=== PATIENT | female | born 1930 | race Caucasian/White ===

== ENCOUNTER 2016-09-09 11:21 | Inpatient (IN) | payer MEDICARE ==
[2016-09-09] MEDS ORDERED: methylPREDNISolone SOD SUCC* 125 MG 2 ML VIAL IV ONE (11:35)
--- NOTE | 2016-09-09 12:14 | RAD ---
INDICATION: Shortness of breath. Cardiac valvular disease. Chronic obstructive pulmonary disease. On home oxygen. COMPARISON: None. TECHNIQUE: Dual energy PA and routine lateral views of the chest were obtained. REPORT: Elevated lung volumes with both minimal prominence and rarefaction of the interstitial markings. No pulmonary consolidation, focal pulmonary lesion, pleural effusion, pneumothorax. Cardiomegaly. Prominent central pulmonary vasculature with peripheral attenuation. Spinal fixation rods with RIGHT convex thoracic lumbar scoliosis with reversal extending cephalad. IMPRESSION: Stigmata of advanced chronic obstructive pulmonary disease and emphysema. Probable pulmonary arterial hypertension. No acute cardiopulmonary process evident.
[2016-09-09 12:22] LABS: Hematocrit 41 % (35-47); Hemoglobin 13.6 g/dl (12.0-16.0); Mean Corpuscular HGB Conc 33 g/dl (31-36); Mean Corpuscular Hemoglobin 32 pg (27-31); Mean Corpuscular Volume 96 fL (80-97); Mean Platelet Volume 9 um3 (7.4-10.4); Red Blood Count 4.25 10^6/ul (4.0-5.4); Red Cell Distribution Width 13 % (10.5-15); White Blood Count 7.1 10^3/ul (3.5-10.8)
[2016-09-09 12:39] LABS: Troponin I 0.01 ng/mL (<0.04)
[2016-09-09] MEDS ORDERED: Albuterol/Ipratropium NEB.SOL* Albuterol 2.5 MG/Ipratropium 0.5 MG 3 ML ONE (12:57)
[2016-09-09] MEDS: Albuterol/Ipratropium NEB.SOL* Albuterol 2.5 MG/Ipratropium 0.5 MG 3 ML INH SCH ×2 (13:00→13:01)
[2016-09-09 13:39] LABS: Albumin 3.5 g/dL (3.2-5.2); BUN/Creatinine Ratio 16.7 (8-20); C Reactive Protein 23.55 mg/L (< 5.00); Calcium 9.3 mg/dL (8.6-10.3); EGFR Non-African American 59.1 (>60); Globulin 3.4 g/dL (2-4); Potassium 4.1 mmol/L (3.5-5.0); Total Protein 6.9 g/dL (6.4-8.9)
[2016-09-09 14:16] LABS: FIO2 2
[2016-09-09 14:39] LABS: PCO2 Arterial 38 mmHg (35-45)
[2016-09-09 15:29] LABS: Urine Bacteria Absent (Absent); Urine Bilirubin Negative (Negative); Urine Glucose Negative (Negative); Urine Nitrite Negative (Negative)
[2016-09-09] MEDS ORDERED: Iodixanol* (CONTRAST) 320 MG/ML 100 ML SDV IV ONE (17:24)
--- NOTE | 2016-09-09 18:24 | RAD ---
INDICATION: Shortness of breath. Elevated d-dimer. Cold symptoms for a couple of days without improvement. COMPARISON: September 09, 2016 chest radiograph. TECHNIQUE: Multidetector CT images were obtained from the lung apices to the upper abdomen with 89 mL Visipaque 320 IV contrast. Pulmonary angiogram protocol. Multiplanar reformation including with maximum intensity projection. REPORT: LEFT greater than RIGHT linear atelectasis at the lung bases. Negative for pleural effusion or pneumothorax. Negative for lymphadenopathy. Cardiomegaly. Negative for pericardial effusion. Tortuous thoracic aorta with mild atherosclerotic plaque. Motion artifact mildly limits sensitivity and specificity of the CT pulmonary angiogram. There is a filling defect involving the distal segmental and subsegmental pulmonary arteries at the posterior basal segment of the LEFT lower lobe. No additional pulmonary artery filling defects visualized. Unremarkable Limited images through the upper abdomen. Dextroscoliosis of the lower thoracic and proximal lumbar spine. Spinal fixation rods. Negative for suspicious focal osseous lesions. IMPRESSION: 1. Probable distal segmental and subsegmental pulmonary embolism at the posterior basal segment of the LEFT lower lobe. 2. LEFT greater than RIGHT basilar atelectasis. No compelling evidence for pneumonia. Results discussed with Dr. Guo 09/09/2016 6:21 PM EDT
[2016-09-09] MEDS ORDERED: Spiriva Inhaler DEVICE* 1 EACH DEVICE INH ONE (20:00)
--- NOTE | 2016-09-09 20:15 | ED ---
Ivone Vidal Matthew, scribed for Ruperto Guo MD on 09/09/16 at 1143 . Shortness of Breath - HPI Summary HPI Summary: An 86 y/o female presents to the ED with SOB since today. Associated symptoms include non-productive cough for the past 2 days that is worse today. The patient has a Hx of dementia and lives with her daughter. The daughter states that the patient has not had a fever, and she's unsure if the patient is having chest pain; however, she has not complained of chest pain. PMHx includes COPD. The patient uses 2-3L of home oxygen at night and Spiriva during the day. - History of Current Complaint Chief Complaint: EDShortnessOfBreath Time Seen by Provider: 09/09/16 11:32 Hx Obtained From: Family/Motor Runner - Laure Hx From Patient Unobtainable Due To: Dementia Onset/Duration: Gradual Onset, Lasting Hours, Still Present Timing: Constant Current Severity: Moderate Dyspnea At: Rest Associated Signs & Symptoms: Cough (Nonproductive) - Allergy/Home Medications Allergies/Adverse Reactions: Allergies Allergy/AdvReac Type Severity Reaction Status Date / Time No Known Allergies Allergy Verified 09/09/16 11:22 Home Medications: Home Medications Aspirin EC Low Dose* [Ecotrin EC Low Dose 81 MG*] 81 mg PO DAILY 09/09/16 [ History Confirmed 09/09/16] Donepezil TAB* [Aricept 5 MG TAB*] 10 mg PO QPM 09/09/16 [History Confirmed ] Metoprolol Succinate XL TAB* [Toprol XL TAB*] 25 mg PO DAILY 09/09/16 [History Confirmed 09/09/16] Pravastatin Sodium [Pravachol] 80 mg PO DAILY 09/09/16 [History Confirmed ] Tiotropium CAP.INH* [Spiriva CAP.INH*] 1 cap.inh INH DAILY 09/09/16 [History Confirmed 09/09/16] PMH/Surg Hx/FS Hx/Imm Hx Cardiovascular History: Reports: Hx Deep Vein Thrombosis, Hx Hypercholesterolemia, Hx Valvular Heart Disease Denies: Hx Hypertension Respiratory History: Reports: Hx Chronic Obstructive Pulmonary Disease (COPD) Infectious Disease History: No Infectious Disease History: Denies: Traveled Outside the [place] in Last 30 Days - Family History Known Family History: Positive: Diabetes Family History: FHx of AAA - Social History Lives: With Family Alcohol Use: None Hx Substance Use: No Substance Use Type: Reports: None Hx Tobacco Use: Yes Smoking Status (MU): Former Smoker Review of Systems Constitutional: Negative Negative: Fever Eyes: Negative ENT: Negative Cardiovascular: Negative Positive: Shortness Of Breath, Cough - non-productive Gastrointestinal: Negative Genitourinary: Negative Musculoskeletal: Negative Skin: Negative Neurological: Negative Psychological: Normal All Other Systems Reviewed And Are Negative: Yes Physical Exam - Summary Physical Exam Summary: VITAL SIGNS: Reviewed. GENERAL: Patient is a well developed and nourished female with some distress secondary to the shortness of breath. However, she is able to speak in full sentences. HEAD AND FACE: Normocephalic and atraumatic. EYES: PERRLA, EOMI x 2, No injected conjunctiva. EARS: Hearing grossly intact. Ear canals and tympanic membranes WNL MOUTH: Dry oral mucosa. NECK: Supple, trachea is midline, no adenopathy, no JVD, no carotid bruit. CHEST: Symmetric, No intercostal or abdominal retraction, LUNGS: Diffuse bilateral wheezing and decreased breath sounds.No crackles. CVS: RRR,, S1 and S2 present, no murmurs or gallops appreciated. ABDOMEN: Soft, non-tender. No signs of distention. Positive BS. No rebound, no guarding, and no masses palpated. EXTREMITIES: FROM in all major joints, no edema, no cyanosis or clubbing. NEURO: Alert and oriented x 3. No acute neurological deficits. Speech is normal and follows commands. SKIN: Dry and warm Triage Information Reviewed: Yes Vital Signs On Initial Exam: Initial Vitals Temp Pulse Resp BP Pulse Ox 98.2 F 91 28 132/73 99 09/09/16 11:22 09/09/16 11:22 09/09/16 11:22 09/09/16 11:22 09/09/16 11:22 Vital Signs Reviewed: Yes Diagnostics - Vital Signs Vital Signs Temp Pulse Resp BP Pulse Ox 09/09/16 11:22 98.2 F 91 28 132/73 99 - Laboratory Result Diagrams: 09/09/16 12:10 09/09/16 12:10 Lab Statement: Any lab studies that have been ordered have been reviewed, and results considered in the medical decision making process. - Radiology CXR Xray Interpretation: No Acute Changes - IMPRESSION: Stigmata of advanced chronic obstructive pulmonary disease and emphysema. Probable pulmonary arterial hypertension. No acute cardiopulmonary process evident. Radiology Interpretation Completed By: Radiologist - CT Chest CTA CT Interpretation: Positive (See Comments) - IMPRESSION: 1. Probable distal segmental and subsegmental pulmonary embolism at the posterior basal segment of the LEFT lower lobe. 2. LEFT greater than RIGHT basilar atelectasis. No compelling evidence for pneumonia. CT Interpretation Completed By: Radiologist - EKG 11:35 Cardiac Rate: NL - 78 bpm EKG Rhythm: Sinus Rhythm EKG Interpretation: No ST elevation Course/Dx - Course Assessment/Plan: An 86 y/o female presents to the ED with SOB since today. Associated symptoms include non-productive cough for the past 2 days that is worse today. The patient has a Hx of dementia and lives with her daughter. The daughter states that the patient has not had a fever, and she's unsure if the patient is having chest pain; however, she has not complained of chest pain. PMHx includes COPD. The patient uses 2-3L of home oxygen at night and Spiriva during the day. D-Dimer of 1050, CRP of 23.55, BNP of 175, Urinalysis is contaminated. Influenza A&B is negative. ABG pH of 7.44, pCO2 of 38, pO2 of 64. CXR shows COPD w/ no other acute cardiopulmonary disease. In the ED course, the patient was given DuoNebs, because she was wheezing, SOB and has a Hx of COPD. Symptoms have no significantly improved, therefore I decided to do CHEST CTA to r/o PE. Chest CTA shows IMPRESSION: 1. Probable distal segmental and subsegmental pulmonary embolism at the posterior basal segment of the LEFT lower lobe. 2. LEFT greater than RIGHT basilar atelectasis. No compelling evidence for pneumonia. At this point, I discussed my findings with Dr. Granados and the patient has COPD exacerbation and PE. Dr. Granados requested that the patient be given xarelto and hell be admitting the patient into his services. - Diagnoses Differential Diagnosis/HQI/PQRI: Positive: Asthma, Bronchitis, CHF, COPD Exacerbation, Pneumonia Provider Diagnoses: Pulmonary embolism, COPD exacerbation - Physician Notifications Discussed Care of Patient With: Dr. Granados (Hospitalist) at 19:15 -- Notified of patinet's history and will admit the patient. Discharge - Discharge Plan Condition: Stable Disposition: ADMITTED TO [facility] Referrals: Non Staff,Doctor [Primary Care Provider] - The documentation as recorded by the Ivone link Matthew accurately reflects the service I personally performed and the decisions made by me, Ruperto Guo MD.
--- NOTE | 2016-09-10 02:34 | HP ---
HOSPITAL MEDICINE HISTORY AND PHYSICAL: DATE OF ADMISSION: 09/09/16 PRIMARY CARE PHYSICIAN: Dr. Rodriguez in [place]. ATTENDING PHYSICIAN: Dr. Dennis Granados *(dictation provided by Jo-Ann Martinez NP) CHIEF COMPLAINT: Shortness of breath. HISTORY OF PRESENT ILLNESS: Ms. Torres is an 86-year-old female with significant history of dementia, who is unable to provide much in the way of information today and therefore, her daughter provides all relevant information about the HPI. The patient's daughter states that Ms. Torres has dementia and was no longer able to care for herself independently and therefore has recently moved in with her into her home in [place]. She noted that about 2 weeks ago, the patient was sleeping and "laying around" more than usual. The suspicion is that perhaps Ms. Torres had a urinary tract infection. She has had these frequently in the past. Today, the patient was getting up to go to the bathroom and she was noted to be significantly short of breath with walking just a short distance. This was very unusual for the patient. There is no report of fever, chills, significant cough, or chest pain. 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 However, her primary care physician had taken her off Coumadin secondary to a fall back in January of last year. In the emergency room, Ms. Torres had a D-dimer, which was greater than 1050. She then went on for a CTA of the chest and thorax, which did confirm a pulmonary embolism. PAST MEDICAL HISTORY: 1. Dementia. 2. COPD. 3. History of DVT, off Coumadin. 4. Hypertension. No further medical history available from the daughter. MEDICATIONS: 1. Spiriva 18 mcg inhaled daily. 2. Donepezil 10 mg p.o. daily. 3. Aspirin 81 mg p.o. daily. 4. Pravastatin 80 mg p.o. daily. 5. Metoprolol ER 25 mg p.o. daily. FAMILY HISTORY: The patient's daughter reports that the patient's mother had diabetes and the patient's father related to an aneurysm. SOCIAL HISTORY: The patient quit smoking over 50 years ago. There is no report of alcohol or drug use. She lives with the patient's daughter whose name is Breanna and she is the healthcare proxy along with the patient's brother. REVIEW OF SYSTEMS: A 14-point review of systems was completed with Ms. Torres to the best of her ability and none of those were positive. PHYSICAL EXAMINATION GENERAL: Ms. Torres is sitting in the bed. She is in no acute distress while at rest. VITAL SIGNS: Temperature 98.2, heart rate 101, respiratory rate 26, O2 saturation 95% on 3 L nasal cannula, and blood pressure 118/67. LUNGS: Clear to auscultation bilaterally with no accessory muscle use and good aeration. HEART: S1, S2. No murmur, rub, or gallop, and regular. ABDOMEN: Soft and nontender with bowel sounds positive x4. EXTREMITIES: No cyanosis or edema. NEURO: She is alert, she is oriented x3 though she is clearly confused and repeats questions several times. She moves all extremities equally. There is no facial asymmetry or focal weakness. Extraocular movements are intact. SKIN: Intact. DIAGNOSTIC STUDIES/LAB DATA: Flu swab is negative. WBC 7.1, hemoglobin 13.6, hematocrit 41, and platelet count 194. D-dimer 1050. Blood gas shows pH 7.44, PCO2 38, PO2 64, bicarbonate 26.2. Sodium 142, potassium 4.1, chloride 102, serum bicarbonate 30, BUN 15, creatinine 0.90, and glucose 80. Troponin 0.01. C- reactive protein 23.55. Urine shows 2+ leuk esterase, positive squamous cells, and no bacteria. Chest/thorax CTA was read as follows: "Probable distal segmental and subsegmental pulmonary embolism at the posterior basal segment of the left lower lobe, left greater than right basilar atelectasis, no compelling evidence for pneumonia." Chest x-ray was read as follows: "Stigmata of advanced chronic obstructive pulmonary disease and emphysema, probable pulmonary arterial hypertension, no acute cardiopulmonary process evident." EKG shows sinus rhythm with no evidence of ischemia. ASSESSMENT AND PLAN: Ms. Torres is an 86-year-old female with past medical history of chronic obstructive pulmonary disease and deep venous thrombosis, who presents to the hospital today with concern for shortness of breath, found to have a pulmonary embolism. Our plans are for observation in the hospital for the followin. Pulmonary embolism: The patient is breathing easily at rest though she is on oxygen. She has been noted to be significantly dyspneic on exertion per the family. Plans are for observation in the hospital overnight on telemetry. She will go on for a transthoracic echocardiogram tomorrow. The patient will be treated with Xarelto and that has been started here in the emergency room. 2. Chronic obstructive pulmonary disease: The patient has no evidence of chronic obstructive pulmonary disease exacerbation. She has no CO2 retention noted on the ABG and she is clear to auscultation. Plan to continue Spiriva. 3. Dementia: Continue donepezil. 4. Hypertension: Continue metoprolol. 5. Hyperlipidemia: Continue pravastatin. 6. Code status: Full code. 7. Disposition: To telemetry. TIME SPENT: Approximately 60 minutes was spent in the admission of this patient , more than half of the time was spent with her at the bedside reviewing the events leading up to this hospitalization, performing the physical examination, and reviewing the plan of care. JO-ANN MARTINEZ NP CC: Dr. Rodriguez* [id number]/CPS #: [id number] HARPAL
[2016-09-10] MEDS: Tiotropium CAP.INH* CAP.INH/18 MCG INH SCH (08:46)
[2016-09-10] MEDS: Metoprolol Succinate XL TAB* 25 MG PO SCH (09:12)
[2016-09-10] MEDS: Rivaroxaban TAB(*) 15 MG PO SCH ×2 (10:16→21:39)
--- NOTE | 2016-09-10 15:43 | ECHO ---
Patient: OLIMPIA LITTLE [facility] Rec#: [id number] : 1930 Date: 09/10/2016 Age: 86y Height: 162.6 cm / 64.0 in Weight: 63.5 kg / 140.0 lbs Sex: F BSA: 71.68 Room#: [facility] Admit Date#: 09/09/2016 Type: Inpatient Referring: Jo-Ann Martinez NP Reading: Cordell Ortega MD Mortician Investigator: Brandie Antoine RN RDCS Transthoracic Echocardiogram Indication: Pulmonary Embolism BP: 104/58 HR: 81 Rhythm: NSR Findings History: Dementia, COPD, history of DVT, HTN, former smoker, HLD. Technical Comments: The study is technically limited due to the patient's history of COPD. The study is technically limited due to the patient's smoking history. Completed at 1530. Left Ventricle: The left ventricular chamber size is decreased. Septal wall hypertrophy is observed. Global left ventricular wall motion and contractility are within normal limits. There is normal left ventricular systolic function. The estimated ejection fraction is 60-65%. There is septal flattening of the interventricular septum consistent with right ventricular volume or pressure overload. There is an E to A reversal in the mitral valve flow pattern suggestive of diastolic dysfunction. Left Atrium: The left atrial chamber size is normal. Right Ventricle: The right ventricle is mildly dilated. The right ventricular global systolic function is mildly reduced. Right Atrium: The right atrial cavity size is normal. Aortic Valve: The aortic valve is trileaflet. The aortic valve leaflets are mildly thickened. There is mild aortic regurgitation. There is no evidence of aortic stenosis. Mitral Valve: The mitral valve leaflets are mildly thickened. There is mild mitral regurgitation. There is no evidence of mitral stenosis. Tricuspid Valve: The tricuspid valve leaflets are normal. There is moderate tricuspid regurgitation. There is evidence of moderate pulmonary hypertension. Pulmonic Valve: The pulmonic valve structure is not well visualized. Pericardium: There is no significant pericardial effusion. A pericardial fat pad is visualized. Aorta: There is no dilatation of the ascending aorta. There is no dilatation of the aortic arch. The aortic root is normal in size. Pulmonary Artery: The main pulmonary artery appears normal. Venous: The venous system is not well visualized. The inferior vena cava is not visualized. Conclusions Global left ventricular wall motion and contractility are within normal limits. There is normal left ventricular systolic function. The estimated ejection fraction is 60-65%. There is septal flattening of the interventricular septum consistent with right ventricular volume or pressure overload. The right ventricular global systolic function is mildly reduced. The aortic valve leaflets are mildly thickened. There is mild aortic regurgitation. There is no evidence of aortic stenosis. There is mild mitral regurgitation. There is moderate tricuspid regurgitation. There is evidence of moderate pulmonary hypertension. Est PASP 46 mmHg There is no significant pericardial effusion. Measurements Name Value Normal Range RVDdMajor (2D) 3.6 cm (2.2 - 4.4) RAd ISD 4CH 4.6 cm (3.4 - 4.9) RA (A4C)W 4.1 cm (2.9 - 4.6) IVSd (2D) 1.2 cm (0.6 - 1) LVPWd (2D) 0.9 cm (0.6 - 1) LVIDd (2D) 2.9 cm (3.6 - 5.4) LVIDs (2D) 1.8 cm - LV FS (2D) 38 % (25 - 45) Aortic Annulus 2.1 cm (1.4 - 2.6) Ao root diameter (2D) 3.5 cm (2.1 - 3.5) Ascending Ao 2.9 cm (2.1 - 3.4) Aortic arch 2 cm (1.8 - 3.4) LA dimension (AP) 2D 2.4 cm (2.3 - 3.8) LAd ISD 4CH 4.5 cm (2.9 - 5.3) LA ISD 4CH W 4 cm (2.5 - 4.5) Name Value Normal Range MV E-wave Vmax 0.6 m/sec - MV deceleration time 303 msec - MV A-wave Vmax 1 m/sec - MV E:A ratio 0.61 ratio - LV septal e' Vmax 0.08 m/sec - LV lateral e' Vmax 0.08 m/sec - LV E:e' septal ratio 7.5 ratio - LV E:e' lateral ratio 7.5 ratio - Name Value Normal Range AV Vmax 1.4 m/sec - AV VTI 28.7 cm - AV peak gradient 8 mmHg - AV mean gradient 4 mmHg - LVOT Vmax 1 m/sec - LVOT VTI 20.8 cm - LVOT peak gradient 4 mmHg - LVOT mean gradient 2 mmHg - Name Value Normal Range TR Vmax 3.1 m/sec - TR peak gradient 38 mmHg - RAP 8 mmHg - RVSP 46 mmHg - Name Value Normal Range PV Vmax 0.7 m/sec -
[2016-09-10] MEDS: Morphine INJ* 2 MG/ML 1 ML SYRINGE IV PRN ×2 (17:50→21:39)
[2016-09-10] MEDS ORDERED: Donepezil TAB* 5 MG PO SCH (18:00)
[2016-09-10] MEDS ORDERED: Rivaroxaban TAB(*) 20 MG TAB PO ONE (18:56)
--- NOTE | 2016-09-10 19:58 | PN ---
Subjective Date of Service: 09/10/16 Interval History: This is an 86 yo woman with a history of dementia, COPD, h/o DVT, and HTN who presented with SOB and fatigue. Diagnosed with PE, no hemodynamically instability. Started on Xarelto. This am, patient reports improved dyspnea, but later this afternoon developed some mild to moderate chest pain without increased dyspnea. Objective Active Medications: Donepezil HCl (Aricept Tab*) 10 mg PO QPM [facility] Last Admin: 09/10/16 17:50 Dose: 10 mg Metoprolol Succinate (Toprol Xl Tab*) 25 mg PO DAILY [facility] Last Admin: 09/10/16 09:12 Dose: 25 mg Morphine Sulfate (Morphine Inj (Syringe)*) 2 mg IV Q4H PRN PRN Reason: PAIN - MILD Last Admin: 09/10/16 17:50 Dose: 2 mg Rivaroxaban (Xarelto(*)) 15 mg PO BID [facility] Last Admin: 09/10/16 10:16 Dose: 15 mg Tiotropium [place] (Spiriva Cap.Inh*) 1 cap INH DAILY [facility] Last Admin: 09/10/16 08:46 Dose: 1 cap Vital Signs: Temp Pulse Resp BP Pulse Ox 98.3 F 89 18 116/64 96 09/10/16 15:27 09/10/16 15:27 09/10/16 18:15 09/10/16 15:27 09/10/16 15:27 Oxygen Devices in Use Now: Nasal Cannula Appearance: Well appearing in NAD Neck: NL Appearance and Movements; NL JVP Respiratory: Symmetrical Chest Expansion and Respiratory Effort Cardiovascular: NL Sounds; No Murmurs; No JVD, RRR Abdominal: NL Sounds; No Tenderness; No Distention Extremities: No Edema Skin: No Rash or Ulcers Neurological: Alert and Oriented x 3 Result Diagrams: 09/09/16 12:10 09/09/16 12:10 Diagnostic Imaging: CTA chest - distal LLL PE and bibasilar atelectasis Assess/Plan/Problems-Billing Assessment: This is an 86 yo female with a history of dementia, COPD, history of DVT, and HTN who presented with complaints of dyspnea, diagnosed with PE. - Patient Problems (1) Pulmonary embolism Comment: Hemodynamically stable Started on Xarelto Improved dyspnea, but started to develop chest pain this afternoon (2) Dementia (3) COPD (chronic obstructive pulmonary disease) Comment: No acute exacerbation (4) History of DVT (deep vein thrombosis) Comment: Previously anticoagulated (5) HTN (hypertension) Comment: Normotensive Cont metoprolol Status and Disposition: Requires continued hospital stay, anticipate possible discharge tomorrow. Transition to inpatient status
[2016-09-11 08:32] VITALS: BP 167/76
[2016-09-11] MEDS: Tiotropium CAP.INH* CAP.INH/18 MCG INH SCH (09:19)
[2016-09-11] MEDS: Rivaroxaban TAB(*) 15 MG PO SCH (09:39)
[2016-09-11] MEDS: Metoprolol Succinate XL TAB* 25 MG PO SCH (09:39)
--- NOTE | 2016-09-12 01:44 | DS ---
DISCHARGE SUMMARY: DATE OF ADMISSION: 09/09/16 DATE OF DISCHARGE: 09/11/16 PRIMARY CARE PROVIDER: Manolo Rodriguez MD DISCHARGING PROVIDER: JUANA Zambrano SUPERVISING PHYSICIAN: Dr. Maxwell.* (DICTATED BY JUANA ZAMBRANO) PRIMARY DISCHARGE DIAGNOSIS: Pulmonary embolus. SECONDARY DISCHARGE DIAGNOSES: 1. Mild to moderate dementia. 2. Chronic obstructive pulmonary disease without acute exacerbation. 3. History of prior deep venous thrombosis. 4. Hypertension. DISCHARGE MEDICATIONS: 1. Donepezil 10 mg p.o. daily. 2. Metoprolol succinate 25 mg p.o. daily. 3. Pravastatin 80 mg p.o. daily. 4. Xarelto 15 mg p.o. twice daily x21 days, then to be followed by 20 mg once daily. 5. Spiriva one capsule inhaled daily. MEDICATION CHANGES: 1. Discontinue aspirin. 2. Start Xarelto. HOSPITAL IMAGIN. Chest x-ray, 09/09/16, shows stigmata of advanced COPD and probable pulmonary arterial hypertension, but no acute process identified. 2. CTA of the chest, 09/09/16, shows probable distal segmental and subsegmental pulmonary embolism at the posterior basal segment of the left lower lobe as well as bibasilar atelectasis, left greater than right. No compelling evidence for pneumonia. HOSPITAL COURSE: This is an 86-year-old female with mild to moderate dementia as well as COPD, history of prior DVT and hypertension, who presented to the emergency department with complaints of shortness of breath and increased fatigue. Initial chest x-ray showed no acute process. Her labs were remarkable , though, for a significantly elevated D-dimer reported as greater than 1050. The patient underwent a CTA of the chest which did identify a pulmonary embolus in the distal arterial distribution of the left lower lobe. The patient showed no signs of hemodynamic instability and she was subsequently started on Xarelto. Her complaints of dyspnea improved within the first 12 hours of treatment. She did develop some chest pain the day following admission, but that seems to improve over the next 24 hours. The patient was able to maintain oxygen saturations in the low 90s on room air without complaints of dyspnea with activity. DISPOSITION: The patient is being discharged to home with Xarelto as described above. Seeing as she has had a history of prior DVT and now a new PE, would recommend lifelong anticoagulation as long as there is not another contraindication to continuing her therapy. The patient requires close followup with her primary care provider within the next week, Dr. Rodriguez, and after completing her 21 days of 15 mg twice daily, she will require continued Xarelto at 20 mg once daily, that prescription will need to be written by her primary care provider. I explained to the patient and her family that some continued chest pain and mild dyspnea is to be expected with a pulmonary embolus , but symptoms should be improving over the next several days. JUANA ZAMBRANO CC: Manolo Rodriguez MD* [id number]/[facility] #: [id number] MTDD
== END 2016-09-11 13:55 | disposition home or self-care (01) | DRG 176 ==
LOC: ED 11:21 → MEDTELE 19:25 → OBSVTOIN 09-10 16:04
PROVIDERS: ADMIT Internal Medicine; ATTEND Internal Medicine
DX: I26.99 Other pulmonary embolism without acute cor pulmonale (principal); J44.1 Chronic obstructive pulmonary disease with (acute) exacerbation; F03.90 Unspecified dementia, unspecified severity, without behavioral disturbance, psychotic disturbance, mood disturbance, and anxiety; E78.5 Hyperlipidemia, unspecified; E78.00 Pure hypercholesterolemia, unspecified; I10 Essential (primary) hypertension; Z87.891 Personal history of nicotine dependence; Z86.718 Personal history of other venous thrombosis and embolism; Z99.81 Dependence on supplemental oxygen; Z79.82 Long term (current) use of aspirin
CPT/HCPCS: 36415; 36600; 71020; 71275; 80053; 81003; 81015; 82550; 82803; 83605; 83880; 84484; 85025; 85379; 86140; 87040; 87086; 87502; 93005; 93306; 94640; 94760; A9270-GY; J2270; J2930; Q9967

== ENCOUNTER 2016-12-04 07:39 | Observation (INO) | payer MEDICARE ==
[2016-12-04 09:30] LABS: Hematocrit 42 % (35-47); Hemoglobin 13.6 g/dl (12.0-16.0); Mean Corpuscular HGB Conc 33 g/dl (31-36); Mean Corpuscular Hemoglobin 32 pg (27-31); Mean Corpuscular Volume 97 fL (80-97); Mean Platelet Volume 9 um3 (7.4-10.4); Red Blood Count 4.29 10^6/ul (4.0-5.4); Red Cell Distribution Width 14 % (10.5-15); White Blood Count 7.3 10^3/ul (3.5-10.8)
[2016-12-04 09:47] LABS: ALT 14 U/L (7-52); AST 20 U/L (13-39); Albumin 3.8 g/dL (3.2-5.2); Alkaline Phosphatase 49 U/L (34-104); BUN/Creatinine Ratio 19.6 (8-20); Blood Urea Nitrogen 19 mg/dL (6-24); CO2 Carbon Dioxide 32 mmol/L (22-32); Calcium 9.4 mg/dL (8.6-10.3); Chloride 104 mmol/L (101-111); Creatine Kinase 56 U/L (10-223); EGFR African American 69.7 (>60); EGFR Non-African American 54.2 (>60); Globulin 2.7 g/dL (2-4); Glucose 94 mg/dL (70-100); Potassium 4.5 mmol/L (3.5-5.0); Sodium 136 mmol/L (133-145); Total Protein 6.5 g/dL (6.4-8.9)
--- NOTE | 2016-12-04 09:54 | RAD ---
Indication: Chest pain. 2 views of the chest including dual energy PA views demonstrates scoliosis of the thoracolumbar spine. Bibasilar atelectasis is noted. When compared to previous exam of September 09, 2016 no significant change is noted. IMPRESSION: Dextroscoliosis of the dorsal spine. No changes noted since September 09, 2016.
[2016-12-04] MEDS ORDERED: Albuterol/Ipratropium NEB.SOL* Albuterol 2.5 MG/Ipratropium 0.5 MG 3 ML INH ONE ×2 (10:09→10:21)
[2016-12-04] MEDS ORDERED: methylPREDNISolone 125 MG* 2 ML VIAL IV ONE (10:21)
[2016-12-04] MEDS ORDERED: Ondansetron INJ* 2 MG/ML VIAL IV PRN (11:33)
[2016-12-04] MEDS ORDERED: Albuterol 2.5 MG/3 ML NEB.SOL* (0.083%) INH PRN (11:33)
[2016-12-04] MEDS ORDERED: Acetaminophen TAB* 325 MG PO PRN (11:33)
[2016-12-04 12:26] LABS: C Reactive Protein 3.16 mg/L (< 5.00)
[2016-12-04] MEDS: Albuterol/Ipratropium NEB.SOL* Albuterol 2.5 MG/Ipratropium 0.5 MG 3 ML INH SCH ×3 (12:59→19:44)
--- NOTE | 2016-12-04 13:37 | HP ---
CC: Dr. Rodriguez * HISTORY AND PHYSICAL: DATE OF ADMISSION: 12/04/16 PRIMARY CARE PROVIDER: Dr. Rodriguez. ATTENDING PHYSICIAN WHILE IN THE HOSPITAL: Dr. Randy Aviles * (report dictated by Olayinka Mo NP). CHIEF COMPLAINT: 1. Cough. 2. Shortness of breath. HISTORY OF PRESENT ILLNESS: Mrs. Torres is an 86-year-old female patient. She has a history of dementia, COPD, DVTs, history of PE now on Eliquis b.i.d., hypertension as well, coming into the ER today stating that the last couple of days the family has noted that she has been having these instances where she has been coughing, having nonproductive cough and while coughing and shortly after coughing, she has been feeling a little short of breath. She wears 3 liters of oxygen at night at all times and she takes it off in the morning. She says that she has had a couple of coughing episodes the last couple of days and then today the family noted that she was really winded, really short of breath particularly after coughing, not bringing up anything. She had no fevers or chills, they were concerned and brought her to the hospital. They noticed that when she was walking to the car, she appeared to be more short of breath than on her baseline. The patient denies significant short of breath now. She denies having any recent congestion, runny nose, sore throat. She does state that she does not have any chest pain and there has been no other symptoms of nausea or vomiting. There was concern, though, however because while here in the ER getting her x-ray, she had another one of these episodes where she started coughing and then shortly thereafter was very short of breath , which was relieved with nebs and steroids. So because of this, the hospitalist service was asked to evaluate for admission. PAST MEDICAL HISTORY: Significant for: 1. Dementia. 2. COPD. 3. DVT. 4. PE. 5. Hypertension. PAST SURGICAL HISTORY: She has had back surgery for scoliosis. HOME MEDICATIONS: 1. Eliquis 2.5 mg p.o. b.i.d. 2. Aricept 10 mg p.o. daily. 3. Metoprolol 25 mg p.o. daily. 4. Pravachol 80 mg daily. 5. Spiriva 1 capsule inhaled daily. ALLERGIES TO MEDICATIONS: AUGMENTIN. FAMILY HISTORY: Mother had a history of diabetes. Father had an aneurysm. SOCIAL HISTORY: She is a former smoker. She quit about 50 years ago. She does not drink alcohol. Surrogate decision maker is her daughter, Luisa. REVIEW OF SYSTEMS: There is no documented fever. She denied having any significant weight change. There was no double vision. There is no ear discharge. No rhinorrhea. No sore throat. No thyroid enlargement. Denies having any chest pain. There was dyspnea on exertion. There was no abdominal pain. No nausea, no vomiting. No dysuria, no frequency. No seizure, no loss of consciousness. No pruritus, no skin ulceration. Review of 14 systems completed, all others negative. PHYSICAL EXAMINATION GENERAL: At this time, Mrs. Torres is an 86-year-old female patient. She is sitting in the ER stretcher. She does not appear to be in any acute distress. VITAL SIGNS: Blood pressure 115/74, pulse 62, respirations 18, her O2 sats were 89% on room air when she came in here to the hospital. She responded to 4 L and she was 98%. She is now on 2 L satting around 100%, temperature was 98.2. HEENT: Head is atraumatic, normocephalic. Eyes: EOMs are intact. Sclerae were anicteric and not pale. Throat: Oral mucosa appears to be moist. No oropharyngeal erythema. NECK: Supple. LUNGS: Actually clear to auscultation bilaterally. There were no wheezes, rales or rhonchi heard. HEART: Sounds S1, S2. Regular rate and rhythm. No murmurs, rubs or gallops. ABDOMEN: Soft, flat, nontender. Bowel sounds were present. EXTREMITIES: Pulses were 2+ throughout. She is able to move all 4 extremities with 5/5 strength. NEUROLOGIC: The patient is awake. She is alert. She is oriented x3. House Superintendent are equal. Tongue midline. No gross focal deficits. SKIN: Intact. DIAGNOSTIC STUDIES/LABORATORY DATA: Labs today revealed WBC 7.3, RBC of 4.29, hemoglobin of 13.6, hematocrit of 42, platelet count of 209. INR of 1.26. Sodium 136, potassium 4.5, chloride of 104, bicarb 19, creatinine 0.97, glucose of 94, lactate 1, calcium 9.4, total bili 1.1. AST 20, ALT 14, alk phos 49, CK 56, CK-MB 1.6, troponin 0, BNP 151, albumin is 3.8. She did have a chest x-ray obtained today. When I reviewed it, I did not appreciate any acute infiltrates or effusions. Radiology read this as dextroscoliosis of the dorsal spine. No changes noted since 09/09/16. She had an EKG obtained today which revealed normal sinus rhythm, rate of 62. No ST elevations or T-wave inversions. This was reviewed with a previous EKG, it is similar. Old medical records reviewed. ASSESSMENT AND PLAN: Mrs. Torres is an 86-year-old female patient coming into the ER today with complaints of cough and shortness of breath. In the ER, she was noted to have one of these episodes down in the ER where she was coughing and then after was very short of breath. We were asked to evaluate for admission. She will be admitted under observation status for: 1. Shortness of breath. I suspect that she is probably having a bronchospasm from when she has been coughing. My plan is to observe her overnight, place her on nebs standing and Dulera. I do not believe she needs steroids at this point, she is not wheezing. I do not think there is any role for antibiotics as this may be a viral illness, and plan is to monitor. Should she spike fevers , then I would go ahead and put her on antibiotics. If we cannot liberate her from oxygen, we may need to consider repeating the CTA. However, I think it would be less likely that she has another PE given the fact that she is on appropriate dose of Eliquis. The goal would be to try to liberate her from oxygen during the day. At night, she does wear 3 L at night and then we will continue to follow. 2. Dementia. Continue Aricept. Supportive care. 3. Chronic obstructive pulmonary disease. She will be on nebs standing and Dulera. 4. Deep vein thrombosis and history of pulmonary embolism. Continue the Eliquis. 5. Hypertension. Continue her metoprolol. 6. DVT prophylaxis. She is on, again, the Eliquis. 7. Code status. She wished to be a full code. 8. Fluids, electrolytes and nutrition. She can have a regular diet. TIME SPENT: Time spent on this admission, 60 minutes; greater than half the time spent [id number] with the patient obtaining my history and physical, other half of the time spent going over the plan of care with the patient and implementing the plan of care. I did discuss the plan of care with my attending, Dr. Aviles; he is in agreement. OLAYINKA MO, GERBER [id number]/[facility] #: [id number] HARPAL
[2016-12-04] MEDS ORDERED: Heparin VIAL(*) 5000 UNITS/ML VIAL (FIVE THOUSAND) SUBCUT SCH (14:00)
--- NOTE | 2016-12-04 17:33 | ED ---
Ivan Vidal Rebecca, scribed for Ruperto Guo MD on 12/04/16 at 0800 . Shortness of Breath - HPI Summary HPI Summary: Pt is an 86 y/o F who presents to ED c/o SOB. SOB began suddenly this morning upon waking up. SOB characterized as intermittent dyspnea at rest which the pt reports is currently not present. Sx aggravated and alleviated by nothing. Additionally c/o nonproductive cough and sore throat. Sore throat began last night and is currently resolved. Denies CP, N/V. Pt uses O2 at home (3L at night ). PMHx PE for which she is currently on Eliquis. SHx former smoker. - History of Current Complaint Chief Complaint: EDShortnessOfBreath Time Seen by Provider: 12/04/16 07:53 Hx Obtained From: Patient Onset/Duration: Sudden Onset, Resolved Timing: Intermittent Episodes Lasting: Current Severity: Mild Dyspnea At: Rest Aggrevating Factors: Nothing Alleviating Factors: Nothing Associated Signs & Symptoms: Cough (Nonproductive) - Allergy/Home Medications Allergies/Adverse Reactions: Allergies Allergy/AdvReac Type Severity Reaction Status Date / Time Amoxicillin [From Augmentin] Allergy Diarrhea Verified 12/04/16 08:14 Clavulanic Acid Allergy Diarrhea Verified 12/04/16 08:14 [From Augmentin] Home Medications: Home Medications Apixaban* [Eliquis*] 2.5 mg PO BID 12/04/16 [History Confirmed 12/04/16] Pravastatin Sodium [Pravachol] 80 mg PO DAILY 12/04/16 [History Confirmed ] PMH/Surg Hx/FS Hx/Imm Hx Cardiovascular History: Reports: Hx Deep Vein Thrombosis, Hx Hypercholesterolemia, Hx Valvular Heart Disease, Other Cardiovascular Problems/ Disorders - HEART VALVE "PROBLEM" Denies: Hx Hypertension Respiratory History: Reports: Hx Chronic Obstructive Pulmonary Disease (COPD), Hx Pulmonary Embolism, Other Respiratory Problems/Disorders - ON HOME O2 Sensory History: Reports: Hx Contacts or Glasses Opthamlomology History: Reports: Hx Contacts or Glasses Neurological History: Reports: Hx Dementia - Surgical History Surgery Procedure, Year, and Place: SPINAL SURGERY, TONSILECTOMY Infectious Disease History: Denies: Traveled Outside the [place] in Last 30 Days - Family History Known Family History: Positive: Diabetes Family History: FHx of AAA - Social History Alcohol Use: Occasionally Hx Substance Use: No Substance Use Type: Reports: None Hx Tobacco Use: Yes Smoking Status (MU): Former Smoker Review of Systems Positive: Sore Throat - last night - resolved Negative: Chest Pain Positive: Shortness Of Breath - dyspnea at rest, Cough - nonproductive Negative: Vomiting, Nausea All Other Systems Reviewed And Are Negative: Yes Physical Exam - Summary Physical Exam Summary: VITAL SIGNS: Reviewed. GENERAL: Patient is a well-developed and nourished female who is lying comfortable in the stretcher. Patient is not in any acute distress. HEAD AND FACE: No signs of trauma. No ecchymosis, hematomas or skull depressions. No sinus tenderness. EYES: PERRLA, EOMI x 2, No injected conjunctiva, no nystagmus. EARS: Hearing grossly intact. Ear canals and tympanic membranes are within normal limits. MOUTH: Oropharynx within normal limits. NECK: Supple, trachea is midline, no adenopathy, no JVD, no carotid bruit, no c- spine tenderness, neck with full ROM. CHEST: Symmetric, no tenderness at palpation LUNGS: Clear to auscultation bilaterally. No wheezing or crackles. CVS: Regular rate and rhythm, S1 and S2 present, no murmurs or gallops appreciated. ABDOMEN: Soft, non-tender. No signs of distention. No rebound no guarding, and no masses palpated. Bowel sounds are normal. EXTREMITIES: FROM in all major joints, no edema, no cyanosis or clubbing. NEURO: Alert and oriented x 3. No acute neurological deficits. Speech is normal and follows commands. SKIN: Dry and warm Triage Information Reviewed: Yes Vital Signs On Initial Exam: Initial Vitals Temp Pulse Resp BP Pulse Ox 97.5 F 81 18 114/64 89 12/04/16 07:40 12/04/16 07:40 12/04/16 07:40 12/04/16 07:40 12/04/16 07:40 Vital Signs Reviewed: Yes Diagnostics - Vital Signs Vital Signs Temp Pulse Resp BP Pulse Ox 12/04/16 07:40 97.5 F 81 18 114/64 89 - Laboratory Lab Results: Lab Results 12/04/16 12/04/16 12/04/16 Range/Units 09:15 09:15 09:15 WBC 7.3 (3.5-10.8) 10^3/ul RBC 4.29 (4.0-5.4) 10^6/ul Hgb 13.6 (12.0-16.0) g/dl Hct 42 (35-47) % MCV 97 (80-97) fL MCH 32 H (27-31) pg MCHC 33 (31-36) g/dl RDW 14 (10.5-15) % Plt Count 209 (150-450) 10^3/ul MPV 9 (7.4-10.4) um3 Neut % (Auto) 77.0 (38-83) % Lymph % (Auto) 12.1 L (25-47) % [place] % (Auto) 7.1 (1-9) % Eos % (Auto) 2.4 (0-6) % Baso % (Auto) 1.4 (0-2) % Absolute Neuts (auto) 5.6 (1.5-7.7) 10^3/ul Absolute Lymphs (auto) 0.9 L (1.0-4.8) 10^3/ul Absolute Monos (auto) 0.5 (0-0.8) 10^3/ul Absolute Eos (auto) 0.2 (0-0.6) 10^3/ul Absolute Basos (auto) 0.1 (0-0.2) 10^3/ul Absolute Nucleated RBC 0 10^3/ul Nucleated RBC % 0 INR (Anticoag Therapy) (0.89-1.11) Sodium 136 (133-145) mmol/L Potassium 4.5 (3.5-5.0) mmol/L Chloride 104 (101-111) mmol/L Carbon Dioxide 32 (22-32) mmol/L BUN 19 (6-24) mg/dL Creatinine 0.97 H (0.51-0.95) mg/dL Est GFR ( Amer) 69.7 (>60) Est GFR (Non-Af Amer) 54.2 (>60) BUN/Creatinine Ratio 19.6 (8-20) Glucose 94 (70-100) mg/dL Lactic Acid 1.0 (0.5-2.0) mmol/L Calcium 9.4 (8.6-10.3) mg/dL Total Bilirubin 1.10 H (0.2-1.0) mg/dL AST 20 (13-39) U/L ALT 14 (7-52) U/L Alkaline Phosphatase 49 (34-104) U/L Total Creatine Kinase 56 (10-223) U/L CK-MB (CK-2) 1.6 (0.6-6.3) ng/mL Troponin I 0.00 (<0.04) ng/mL C-Reactive Protein 3.16 (< 5.00) mg/L B-Natriuretic Peptide ( - 100) pg/mL Total Protein 6.5 (6.4-8.9) g/dL Albumin 3.8 (3.2-5.2) g/dL Globulin 2.7 (2-4) g/dL Albumin/Globulin Ratio 1.4 (1-3) 12/04/16 12/04/16 Range/Units 09:15 09:15 WBC (3.5-10.8) 10^3/ul RBC (4.0-5.4) 10^6/ul Hgb (12.0-16.0) g/dl Hct (35-47) % MCV (80-97) fL MCH (27-31) pg MCHC (31-36) g/dl RDW (10.5-15) % Plt Count (150-450) 10^3/ul MPV (7.4-10.4) um3 Neut % (Auto) (38-83) % Lymph % (Auto) (25-47) % [place] % (Auto) (1-9) % Eos % (Auto) (0-6) % Baso % (Auto) (0-2) % Absolute Neuts (auto) (1.5-7.7) 10^3/ul Absolute Lymphs (auto) (1.0-4.8) 10^3/ul Absolute Monos (auto) (0-0.8) 10^3/ul Absolute Eos (auto) (0-0.6) 10^3/ul Absolute Basos (auto) (0-0.2) 10^3/ul Absolute Nucleated RBC 10^3/ul Nucleated RBC % INR (Anticoag Therapy) 1.26 H (0.89-1.11) Sodium (133-145) mmol/L Potassium (3.5-5.0) mmol/L Chloride (101-111) mmol/L Carbon Dioxide (22-32) mmol/L BUN (6-24) mg/dL Creatinine (0.51-0.95) mg/dL Est GFR ( Amer) (>60) Est GFR (Non-Af Amer) (>60) BUN/Creatinine Ratio (8-20) Glucose (70-100) mg/dL Lactic Acid (0.5-2.0) mmol/L Calcium (8.6-10.3) mg/dL Total Bilirubin (0.2-1.0) mg/dL AST (13-39) U/L ALT (7-52) U/L Alkaline Phosphatase (34-104) U/L Total Creatine Kinase (10-223) U/L CK-MB (CK-2) (0.6-6.3) ng/mL Troponin I (<0.04) ng/mL C-Reactive Protein (< 5.00) mg/L B-Natriuretic Peptide 151 H ( - 100) pg/mL Total Protein (6.4-8.9) g/dL Albumin (3.2-5.2) g/dL Globulin (2-4) g/dL Albumin/Globulin Ratio (1-3) Result Diagrams: 12/04/16 09:15 12/04/16 09:15 Lab Statement: Any lab studies that have been ordered have been reviewed, and results considered in the medical decision making process. - Radiology CXR Xray Interpretation: No Acute Changes Radiology Interpretation Completed By: Radiologist - EKG [id number] Cardiac Rate: NL - 62 bpm EKG Rhythm: Sinus Rhythm EKG Interpretation: No ST elevations Re-Evaluation - Re-Evaluation First Eval Re-Evaluation Time: 10:12 Comment: Called for reassessment because an episode of SOB. Right now lungs have decreased breath sounds and a little bit of wheezing. Course/Dx - Course Assessment/Plan: Pt is an 86 y/o F who presents to ED c/o SOB. SOB began suddenly this morning upon waking up. SOB characterized as intermittent dyspnea at rest which the pt reports is currently not present. Sx aggravated and alleviated by nothing. Additionally c/o nonproductive cough and sore throat. Sore throat began last night and is currently resolved. Denies CP, N/V. Pt uses O2 at home (3L at night). PMHx PE for which she is currently on Eliquis. SHx former smoker. Test results within normal limits except BNP of 151. CXR shows no acute changes. In the ED course, patient is wheezing, with no crackles. We obtain IV access, placed patient on monitor and started patient on Duonebs with Solu-Medrol. The sx have improved but not resolved, the pt continues to have SOB and dyspnea at exertion when we remove O2. Therefore, I disclosed my physical exam and findings with Dr. Aviles who accepts patient for admission. She is hemodynamically stable and AxOx3. - Diagnoses Differential Diagnosis/HQI/PQRI: Positive: Asthma, Bronchitis, CHF, COPD Exacerbation Provider Diagnoses: COPD exacerbation - Physician Notifications Discussed Care of Patient With: Randy Aviles - Accepts pt for admission Time Discussed With Above Provider: 10:50 Discharge - Discharge Plan Condition: Good Disposition: ADMITTED TO [facility] The documentation as recorded by the Ivan link Rebecca accurately reflects the service I personally performed and the decisions made by me, Ruperto Guo MD.
[2016-12-04] MEDS ORDERED: Donepezil TAB* 5 MG PO SCH (18:00)
[2016-12-04] MEDS: Mometasone/Formoter 200/5 MDI INH SCH (19:43)
[2016-12-04] MEDS: Apixaban* 2.5 MG TAB PO SCH (20:21)
[2016-12-05 04:45] LABS: Hematocrit 40 % (35-47); Mean Corpuscular HGB Conc 33 g/dl (31-36); Mean Corpuscular Hemoglobin 32 pg (27-31); Mean Corpuscular Volume 97 fL (80-97); Mean Platelet Volume 9 um3 (7.4-10.4); Red Blood Count 4.09 10^6/ul (4.0-5.4); Red Cell Distribution Width 14 % (10.5-15); White Blood Count 6.1 10^3/ul (3.5-10.8)
[2016-12-05 04:46] LABS: Add Diff/Slide Review? Slide Review Added; Comments Flag Yes
[2016-12-05 04:56] LABS: BUN/Creatinine Ratio 25.7 (8-20); Calcium 9.3 mg/dL (8.6-10.3); EGFR African American 60.9 (>60); EGFR Non-African American 47.4 (>60); Potassium 4.5 mmol/L (3.5-5.0)
[2016-12-05 06:08] LABS: Immature Granulocytes 15 % (0-9); Neutrophil % 75 % (38-83); RBC Morphology Normal (Normal)
[2016-12-05] MEDS: Mometasone/Formoter 200/5 MDI INH SCH (08:02)
[2016-12-05 08:07] VITALS: BP 127/55
[2016-12-05] MEDS ORDERED: Metoprolol Succinate XL TAB* 25 MG PO SCH (09:00)
[2016-12-05] MEDS ORDERED: Atorvastatin* 20 MG TAB PO SCH (09:00)
[2016-12-05] MEDS: Apixaban* 2.5 MG TAB PO SCH (10:14)
--- NOTE | 2016-12-05 11:08 | PN ---
Subjective Date of Service: 12/05/16 Interval History: Patient seen and examined at bedside. She is accompanied by her daughters. Patient is pleasantly confused but denies any chest pain or SOB. She is eager to go. Her daughters feel she is at her baseline but feel she would benefit from portable O2 when she is ambulating. We also discussed having a nebulizer available. Patient's breathing has worsened in the presence of extreme heat and lack of air flow/AC. Family is working on providing humidified air to patient at home. Family History: Unchanged from Admission Social History: Unchanged from Admission Past Medical History: Unchanged from Admission Objective Active Medications: Acetaminophen (Tylenol Tab*) 650 mg PO Q4H PRN PRN Reason: FEVER/PAIN Albuterol (Ventolin 2.5 Mg/3 Ml Neb.Sylvia*) 2.5 mg INH Q2H PRN PRN Reason: SOB/WHEEZING Apixaban (Eliquis) 2.5 mg PO BID [facility] Last Admin: 12/05/16 10:14 Dose: 2.5 mg Atorvastatin Calcium (Lipitor*) 20 mg PO DAILY [facility] Last Admin: 12/05/16 10:14 Dose: 20 mg Donepezil HCl (Aricept Tab*) 10 mg PO QPM [facility] Last Admin: 12/04/16 18:14 Dose: 10 mg Metoprolol Succinate (Toprol Xl Tab*) 25 mg PO DAILY [facility] Last Admin: 12/05/16 10:14 Dose: 25 mg Mometasone Furoate/Formoterol Fumar (Dulera 200/5 Mdi*) 2 puff INH BID [facility] Last Admin: 12/05/16 08:02 Dose: 2 puff Ondansetron HCl (Zofran Inj*) 4 mg IV Q6H PRN PRN Reason: NAUSEA Vital Signs 12/04/16 12/04/16 12/04/16 11:30 11:39 11:58 Temperature 97.8 F Pulse Rate 76 73 Respiratory 25 19 17 Rate Blood Pressure 132/65 132/65 (mmHg) O2 Sat by Pulse 96 95 Oximetry 12/04/16 12/04/16 12/04/16 13:02 14:23 16:11 Temperature 98.6 F 97.6 F Pulse Rate 80 91 84 Respiratory 18 17 16 Rate Blood Pressure 130/63 109/59 (mmHg) O2 Sat by Pulse 97 96 94 Oximetry 12/04/16 12/04/16 12/04/16 18:40 19:44 23:14 Temperature Pulse Rate 106 98 Respiratory 18 14 16 Rate Blood Pressure 110/64 (mmHg) O2 Sat by Pulse 95 97 Oximetry 12/04/16 12/05/16 12/05/16 23:57 03:47 07:26 Temperature 97.8 F 98.4 F 98.2 F Pulse Rate 102 94 126 Respiratory 18 17 16 Rate Blood Pressure 121/90 101/66 148/123 (mmHg) O2 Sat by Pulse 90 89 97 Oximetry 12/05/16 12/05/16 12/05/16 08:05 08:07 08:08 Temperature Pulse Rate 68 68 Respiratory 18 24 Rate Blood Pressure 127/55 (mmHg) O2 Sat by Pulse 99 99 99 Oximetry 12/05/16 10:42 Temperature Pulse Rate Respiratory Rate Blood Pressure (mmHg) O2 Sat by Pulse 90 Oximetry Oxygen Devices in Use Now: Nasal Cannula - 2L Appearance: Pleasant, elderly female, sitting up in bed, NAD Eyes: PERRLA Ears/Nose/Mouth/Throat: Mucous Membranes Moist Neck: NL Appearance and Movements; NL JVP Respiratory: Symmetrical Chest Expansion and Respiratory Effort, Clear to Auscultation Cardiovascular: NL Sounds; No Murmurs; No JVD, RRR Abdominal: NL Sounds; No Tenderness; No Distention Extremities: No Edema Neurological: NL Muscle Strength and Tone, - - Alert, mildly confused but answers appropriate Lines/Tubes/Other Access: Clean, Dry and Intact Peripheral IV Nutrition: Taking PO's Result Diagrams: 12/05/16 04:31 12/05/16 04:31 Additional Lab and Data: Lab Results 12/04/16 12/04/16 12/04/16 Range/Units 09:15 09:15 09:15 WBC 7.3 (3.5-10.8) 10^3/ul RBC 4.29 (4.0-5.4) 10^6/ul Hgb 13.6 (12.0-16.0) g/dl Hct 42 (35-47) % MCV 97 (80-97) fL MCH 32 H (27-31) pg MCHC 33 (31-36) g/dl RDW 14 (10.5-15) % Plt Count 209 (150-450) 10^3/ul MPV 9 (7.4-10.4) um3 Neut % (Auto) 77.0 (38-83) % Lymph % (Auto) 12.1 L (25-47) % [place] % (Auto) 7.1 (1-9) % Eos % (Auto) 2.4 (0-6) % Baso % (Auto) 1.4 (0-2) % Absolute Neuts (auto) 5.6 (1.5-7.7) 10^3/ul Absolute Lymphs (auto) 0.9 L (1.0-4.8) 10^3/ul Absolute Monos (auto) 0.5 (0-0.8) 10^3/ul Absolute Eos (auto) 0.2 (0-0.6) 10^3/ul Absolute Basos (auto) 0.1 (0-0.2) 10^3/ul Absolute Nucleated RBC 0 10^3/ul Nucleated RBC % 0 INR (Anticoag Therapy) (0.89-1.11) Sodium 136 (133-145) mmol/L Potassium 4.5 (3.5-5.0) mmol/L Chloride 104 (101-111) mmol/L Carbon Dioxide 32 (22-32) mmol/L BUN 19 (6-24) mg/dL Creatinine 0.97 H (0.51-0.95) mg/dL Est GFR ( Amer) 69.7 (>60) Est GFR (Non-Af Amer) 54.2 (>60) BUN/Creatinine Ratio 19.6 (8-20) Glucose 94 (70-100) mg/dL Lactic Acid 1.0 (0.5-2.0) mmol/L Calcium 9.4 (8.6-10.3) mg/dL Total Bilirubin 1.10 H (0.2-1.0) mg/dL AST 20 (13-39) U/L ALT 14 (7-52) U/L Alkaline Phosphatase 49 (34-104) U/L Total Creatine Kinase 56 (10-223) U/L CK-MB (CK-2) 1.6 (0.6-6.3) ng/mL Troponin I 0.00 (<0.04) ng/mL C-Reactive Protein 3.16 (< 5.00) mg/L B-Natriuretic Peptide ( - 100) pg/mL Total Protein 6.5 (6.4-8.9) g/dL Albumin 3.8 (3.2-5.2) g/dL Globulin 2.7 (2-4) g/dL Albumin/Globulin Ratio 1.4 (1-3) 12/04/16 12/04/16 Range/Units 09:15 09:15 WBC (3.5-10.8) 10^3/ul RBC (4.0-5.4) 10^6/ul Hgb (12.0-16.0) g/dl Hct (35-47) % MCV (80-97) fL MCH (27-31) pg MCHC (31-36) g/dl RDW (10.5-15) % Plt Count (150-450) 10^3/ul MPV (7.4-10.4) um3 Neut % (Auto) (38-83) % Lymph % (Auto) (25-47) % [place] % (Auto) (1-9) % Eos % (Auto) (0-6) % Baso % (Auto) (0-2) % Absolute Neuts (auto) (1.5-7.7) 10^3/ul Absolute Lymphs (auto) (1.0-4.8) 10^3/ul Absolute Monos (auto) (0-0.8) 10^3/ul Absolute Eos (auto) (0-0.6) 10^3/ul Absolute Basos (auto) (0-0.2) 10^3/ul Absolute Nucleated RBC 10^3/ul Nucleated RBC % INR (Anticoag Therapy) 1.26 H (0.89-1.11) Sodium (133-145) mmol/L Potassium (3.5-5.0) mmol/L Chloride (101-111) mmol/L Carbon Dioxide (22-32) mmol/L BUN (6-24) mg/dL Creatinine (0.51-0.95) mg/dL Est GFR ( Amer) (>60) Est GFR (Non-Af Amer) (>60) BUN/Creatinine Ratio (8-20) Glucose (70-100) mg/dL Lactic Acid (0.5-2.0) mmol/L Calcium (8.6-10.3) mg/dL Total Bilirubin (0.2-1.0) mg/dL AST (13-39) U/L ALT (7-52) U/L Alkaline Phosphatase (34-104) U/L Total Creatine Kinase (10-223) U/L CK-MB (CK-2) (0.6-6.3) ng/mL Troponin I (<0.04) ng/mL C-Reactive Protein (< 5.00) mg/L B-Natriuretic Peptide 151 H ( - 100) pg/mL Total Protein (6.4-8.9) g/dL Albumin (3.2-5.2) g/dL Globulin (2-4) g/dL Albumin/Globulin Ratio (1-3) Assess/Plan/Problems-Billing Assessment: Ms. Torres is an 86 yo female with a PMH of COPD, dementia, PE/DVT, and HTN who presented to the ED on 12/04 with concern for shortness of breath and cough. - Patient Problems (1) Dyspnea Code(s): R06.00 - DYSPNEA, UNSPECIFIED Comment: Resolves, suspect secondary to bronchospasm Patient has home concentrators but no portable O2. She qualified for home O2 use with decreased O2 sats on ambulation. Patient also ordered nebulizer machine for home use. Family working on getting patient humidified air or AC, as it has been very hot and house has no A/C. Family supportive, feel comfortable with discharge home. (2) COPD (chronic obstructive pulmonary disease) Code(s): J44.9 - CHRONIC OBSTRUCTIVE PULMONARY DISEASE, UNSPECIFIED Comment: No acute exacerbation (3) Dementia Code(s): F03.90 - UNSPECIFIED DEMENTIA WITHOUT BEHAVIORAL DISTURBANCE Comment : Continue donepezil. (4) HTN (hypertension) Code(s): I10 - ESSENTIAL (PRIMARY) HYPERTENSION Comment: Normotensive Cont metoprolol (5) History of DVT (deep vein thrombosis) Code(s): Z86.718 - PERSONAL HISTORY OF OTHER VENOUS THROMBOSIS AND EMBOLISM Comment: Hx of DVT and PE Continue apixaban. Status and Disposition: OBV admit. D/c to home.
--- NOTE | 2016-12-06 12:54 | DS ---
CC: Dr. Rodriguez * DISCHARGE SUMMARY: DATE OF ADMISSION: 12/04/16 DATE OF DISCHARGE: 12/05/16 PRIMARY CARE PHYSICIAN: Dr. Rodriguez PROVIDER: Davy Butterfield NP ATTENDING PHYSICIAN: Greer Freeman DO *(as dictated by Davy Butterfield NP). PRIMARY DISCHARGE DIAGNOSES: 1. Dyspnea. 2. Bronchospasm. SECONDARY DISCHARGE DIAGNOSES: 1. Recent pulmonary embolism, diagnosed in August of 2016. 2. Dementia. 3. Chronic obstructive pulmonary disease. 4. Deep vein thrombosis. 5. Hypertension. MEDICATIONS AT DISCHARGE: 1. Pravastatin 80 mg daily. 2. Metoprolol XL 25 mg daily. 3. Aricept 10 mg q.p.m. 4. Spiriva 1 capsule inhaled daily. 5. Eliquis 2.5 mg b.i.d. 6. Albuterol nebulizer treatments, 1 treatment inhaled q.4 hours p.r.n. shortness of breath or wheezing. This is a new medication. HOSPITAL COURSE OF STAY: For full details, please refer to the H and P provided by nurse practitioner, Olayinka Mattson, on 12/04/16. In summary, Ms. Torres is an 86- year-old female patient, who lives at home with her daughters. She presented to the ER with concern for persistent nonproductive coughing and shortness of breath. The patient has oxygen for use at nighttime and she takes it off in the morning. The family did express concern that the patient became particularly more short of breath with activity and had decreased activity tolerance. They do feel that the heat was play into this as it has been very hot outside recently and the patient does not have any air conditioner or fans in her home. There was also concern that the patient requires oxygen with activity as opposed to just at nighttime. In the ER, the patient received nebulizer treatments and steroids, which did improve her coughing and dyspnea. She was admitted for observation overnight, suspected bronchospasm, but does show upper respiratory illness. The following day, the patient verbalized continued improvement and had no concern for adventitious lung sounds such as rales, rhonchi, or wheezing. The patient is able to demonstrate ambulation with her walker. We did ambulate her on room air to monitor her O2 saturation and she reportedly dropped as low as 81%. We did write for portable home O2 as well as a nebulizer machine for the patient for home use. Her daughters were at bedside and agree with this plan of care. The patient had no fevers or other acute concerns while here. She denies any chest pain. Her dyspnea is well controlled at the time of discharge. Family felt safe and were in agreement with the plan to have her discharged to home. CONCERNS AT DISCHARGE: Ms. Torres was discharged to home on 12/05/16 with a plan to follow up with her primary care provider, Dr. Rodriguez within the next week. DIET: Heart healthy diet. ACTIVITY: As tolerated. CONDITION: Stable. DISPOSITION: To home with family. TIME SPENT: Time spent on this discharge was approximately 40 minutes. Again, this is only a brief summary of the patient's hospital course of stay. For full details, please refer to the full medical record. If you have any further questions or need further assistance, please feel free to contact me at [phone]. DAVY BUTTERFIELD NP [id number]/[facility] #: [id number] HARPAL
== END 2016-12-05 15:50 | disposition home or self-care (01) ==
LOC: ED 07:39 → MED 10:53 → INTOOBSV 10:53 → MED 11:38
PROVIDERS: ADMIT Hospitalist; ATTEND Hospitalist
DX: R06.00 Dyspnea, unspecified (principal); J98.01 Acute bronchospasm; I10 Essential (primary) hypertension; R06.02 Shortness of breath; Z86.711 Personal history of pulmonary embolism; Z86.718 Personal history of other venous thrombosis and embolism; Z79.01 Long term (current) use of anticoagulants; F03.90 Unspecified dementia, unspecified severity, without behavioral disturbance, psychotic disturbance, mood disturbance, and anxiety; I44.4 Left anterior fascicular block; J44.9 Chronic obstructive pulmonary disease, unspecified; Z79.899 Other long term (current) drug therapy; Z88.1 Allergy status to other antibiotic agents; Z88.8 Allergy status to other drugs, medicaments and biological substances
CPT/HCPCS: 36415; 71020; 80048; 80053; 82550; 82553; 83605; 83880; 84484; 85025; 85610; 86140; 87040; 93005; 94640; 94760; 96374; 99283; A9270-GY; G0378; J2930

== ENCOUNTER 2016-12-12 19:16 | Inpatient (IN) | payer MEDICARE ==
[2016-12-12 20:58] LABS: Hematocrit 42 % (35-47); Hemoglobin 13.9 g/dl (12.0-16.0); Mean Corpuscular HGB Conc 33 g/dl (31-36); Mean Corpuscular Hemoglobin 32 pg (27-31); Mean Corpuscular Volume 97 fL (80-97); Mean Platelet Volume 9 um3 (7.4-10.4); Red Blood Count 4.37 10^6/ul (4.0-5.4); Red Cell Distribution Width 14 % (10.5-15); White Blood Count 11.5 10^3/ul (3.5-10.8)
[2016-12-12 21:10] LABS: Albumin 3.9 g/dL (3.2-5.2); BUN/Creatinine Ratio 13.2 (8-20); Calcium 9.8 mg/dL (8.6-10.3); EGFR Non-African American 58.3 (>60); Globulin 3.5 g/dL (2-4); Total Bilirubin 1.3 mg/dL (0.2-1.0); Total Protein 7.4 g/dL (6.4-8.9)
[2016-12-12 21:11] LABS: Troponin I 0.01 ng/mL (<0.04)
[2016-12-12 21:39] LABS: PCO2 Arterial 40 mmHg (35-45)
[2016-12-12] MEDS ORDERED: NS 0.9% 1000 ML* 1,000 ML IV ONE (21:50)
[2016-12-12 22:01] LABS: Urine Bacteria 1+ (Absent); Urine Bilirubin Negative (Negative); Urine Glucose Negative (Negative); Urine Nitrite Negative (Negative)
[2016-12-12] MEDS ORDERED: Levofloxacin 750 MG IVPREMIX(* 750 MG/150 ML BAG IVPB ONE (22:19)
--- NOTE | 2016-12-12 22:20 | RAD ---
INDICATION: Short of breath COMPARISON: Chest x-ray December 04, 2016 TECHNIQUE: AP seated and lateral views were obtained. FINDINGS: Bones/Soft Tissues: There are no acute bony findings. There is a prominent dextroscoliosis. There are Jackson rods. Cardiomediastinal: The heart is normal in size. Lungs: There is bibasilar airspace disease with mild worsening in the right lung base. Pleura: Small right-sided effusion. Other: None IMPRESSION: MILD BIBASILAR SPACE DISEASE WITH MILD WORSENING ON THE RIGHT AND A SMALL RIGHT-SIDED PLEURAL EFFUSION. SUGGEST FOLLOW-UP
[2016-12-13] MEDS ORDERED: Albuterol/Ipratropium NEB.SOL* Albuterol 2.5 MG/Ipratropium 0.5 MG 3 ML INH ONE (00:48)
[2016-12-13] MEDS ORDERED: methylPREDNISolone 125 MG* 2 ML VIAL IV ONE (02:07)
[2016-12-13] MEDS ORDERED: Albuterol 2.5 MG/3 ML NEB.SOL* (0.083%) INH PRN (02:07)
[2016-12-13] MEDS ORDERED: Acetaminophen TAB* 325 MG PO PRN (02:07)
[2016-12-13] MEDS ORDERED: Ondansetron INJ* 2 MG/ML VIAL IV PRN (02:07)
[2016-12-13] MEDS ORDERED: CMCS: Melatonin (NF) 3 MG TAB PO PRN (02:07)
[2016-12-13] MEDS: NS 0.9% 1000 ML* 1,000 ML IV SCH ×2 (03:40→16:43)
--- NOTE | 2016-12-13 03:51 | HP ---
H&P (Free Text) History and Physical: PCP: Nitesh Rodriguez MD Date/Time of Evaluation: 12/13/2016 0205 CC: SOB, cough HPI: Mrs Torres is an 86YO female HX COPD 3L nighttime oxygen, dementia admitted to [facility] 12/04-12/05/2016 for COPD exacerbation. Family reports that since discharge she has failed to improve, continues to have severe coughing spells, is requiring oxygen 24/7 instead of nocturnal only, and is reporting worsening SOB. There has been no F/C, sweats, or other complaints. PMedHx dementia COPD DVT w/ PE HTN 'leaky valve' Ambulatory Orders Donepezil TAB* [Aricept 5 MG TAB*] 10 mg PO QPM 09/09/16 Metoprolol Succinate XL TAB* [Toprol XL TAB*] 25 mg PO DAILY 09/09/16 Tiotropium CAP.INH* [Spiriva CAP.INH*] 1 cap.inh INH DAILY 09/09/16 Apixaban* [Eliquis*] 2.5 mg PO BID 12/04/16 Pravastatin Sodium [Pravachol] 80 mg PO DAILY 12/04/16 Albuterol 2.5MG/3ML (0.083%)* [Ventolin 2.5 MG/3 ML NEB.ANABELLA*] 2.5 mg INH Q4H PRN #1 box 12/05/16 Allergies Amoxicillin [From Augmentin] Allergy (Verified 12/04/16 08:14) Diarrhea Clavulanic Acid [From Augmentin] Allergy (Verified 12/04/16 08:14) Diarrhea PSurgHx spinal rods for scoliosis R rotator cuff repair SocHx: former smoker quit >50years ago, no alcohol or recreational drugs; , lives alone; full code status FamHx: Brother passed of leukemia. Sister passed of "heart issues". Otherwise positive for HTN & DM2 ROS: as above, otherwise reviewed and all were negative Constitutional: NAD, normally developed, well-nourished elderly female vitals: Vital Signs Temp 38.0 C 12/12/16 19:23 Pulse 94 12/13/16 02:00 Resp 27 12/13/16 02:00 BP 107/70 12/13/16 02:00 Pulse Ox 95 12/13/16 02:00 Intake & Output 12/12/16 12/12/16 12/13/16 11:59 23:59 11:59 Intake Total 1150 Balance 1150 Weight 63.503 kg Intake: IV Fluids 1150 HEENM: atraumatic; sclera/conjunctiva: non-icteric/clear; hearing: clinically intact; oropharynx: clear, mucosa moist Neck: soft tissue: non-tender; thyroid: normal Pulmonary: diminished B w/ scant end-expiratory wheeze & prolonged expiratory phase, fair to poor aeration, no accessory muscle use CV: RR/RR, normal S1S2, no carotid bruit, no femoral bruit, no abdominal bruit, no jugular venous distention, 2+ B DP/PT, no edema Abdominal: soft, non-distended, non-tender, no rebound/guarding/rigidity, normoactive bowel sounds, no hepatosplenomegaly or masses, no costovertebral angle tenderness Musculoskeletal: general: grossly intact Integumental: normal appearance and texture of exposed skin Psychiatric orientation: AA&O to PPS, mildly confused, argues lightly with daughters regarding medical HX details affect: calm mood: cooperative eye contact: fair content: unreliable memory: impaired responses: timely insight: fair to poor Testing: Lab Results 12/12/16 12/12/16 12/12/16 Range/Units 19:33 19:33 19:33 WBC 11.5 H (3.5-10.8) 10^3/ul RBC 4.37 (4.0-5.4) 10^6/ul Hgb 13.9 (12.0-16.0) g/dl Hct 42 (35-47) % MCV 97 (80-97) fL MCH 32 H (27-31) pg MCHC 33 (31-36) g/dl RDW 14 (10.5-15) % Plt Count 224 (150-450) 10^3/ul MPV 9 (7.4-10.4) um3 Neut % (Auto) 79.3 (38-83) % Lymph % (Auto) 12.7 L (25-47) % [place] % (Auto) 6.9 (1-9) % Eos % (Auto) 0.6 (0-6) % Baso % (Auto) 0.5 (0-2) % Absolute Neuts (auto) 9.1 H (1.5-7.7) 10^3/ul Absolute Lymphs (auto) 1.5 (1.0-4.8) 10^3/ul Absolute Monos (auto) 0.8 (0-0.8) 10^3/ul Absolute Eos (auto) 0.1 (0-0.6) 10^3/ul Absolute Basos (auto) 0.1 (0-0.2) 10^3/ul Absolute Nucleated RBC 0.01 10^3/ul Nucleated RBC % 0.1 INR (Anticoag Therapy) 1.33 H (0.89-1.11) Patient Temperature ABG pH (7.35-7.45) ABG pCO2 (35-45) mmHg ABG pO2 (80-100) mmHg ABG HCO3 (19-31) mmol/L ABG O2 Saturation (95-98) % ABG Base Excess (-2.0-2.0) Respiration Rate O2 Delivery Device Ventilator Type Vent Mode FiO2 Inspiratory Time PEEP Pressure Support Pressure Control EPAP IPAP BiPAP Sodium 137 (133-145) mmol/L Potassium 4.0 (3.5-5.0) mmol/L Chloride 99 L (101-111) mmol/L Carbon Dioxide 29 (22-32) mmol/L Anion Gap 9 (2-11) mmol/L BUN 12 (6-24) mg/dL Creatinine 0.91 (0.51-0.95) mg/dL Est GFR ( Amer) 75.0 (>60) Est GFR (Non-Af Amer) 58.3 (>60) BUN/Creatinine Ratio 13.2 (8-20) Glucose 120 H (70-100) mg/dL Lactic Acid (0.5-2.0) mmol/L Calcium 9.8 (8.6-10.3) mg/dL Total Bilirubin 1.30 H (0.2-1.0) mg/dL AST 17 (13-39) U/L ALT 13 (7-52) U/L Alkaline Phosphatase 66 (34-104) U/L Troponin I 0.01 (<0.04) ng/mL B-Natriuretic Peptide ( - 100) pg/mL Total Protein 7.4 (6.4-8.9) g/dL Albumin 3.9 (3.2-5.2) g/dL Globulin 3.5 (2-4) g/dL Albumin/Globulin Ratio 1.1 (1-3) Urine Color Urine Appearance Urine pH (5-9) Ur Specific [place] (1.010-1.030) Urine Protein (Negative) Urine Ketones (Negative) Urine Blood (Negative) Urine Nitrate (Negative) Urine Bilirubin (Negative) Urine Urobilinogen (Negative) Ur Leukocyte Esterase (Negative) Urine WBC (Auto) (Absent) Urine RBC (Auto) (Absent) Ur Squamous Epith Cells (Absent) Urine Bacteria (Absent) Urine Glucose (Negative) Urine Ascorbic Acid (Negative) 12/12/16 12/12/16 12/12/16 Range/Units 19:33 19:33 21:30 WBC (3.5-10.8) 10^3/ul RBC (4.0-5.4) 10^6/ul Hgb (12.0-16.0) g/dl Hct (35-47) % MCV (80-97) fL MCH (27-31) pg MCHC (31-36) g/dl RDW (10.5-15) % Plt Count (150-450) 10^3/ul MPV (7.4-10.4) um3 Neut % (Auto) (38-83) % Lymph % (Auto) (25-47) % [place] % (Auto) (1-9) % Eos % (Auto) (0-6) % Baso % (Auto) (0-2) % Absolute Neuts (auto) (1.5-7.7) 10^3/ul Absolute Lymphs (auto) (1.0-4.8) 10^3/ul Absolute Monos (auto) (0-0.8) 10^3/ul Absolute Eos (auto) (0-0.6) 10^3/ul Absolute Basos (auto) (0-0.2) 10^3/ul Absolute Nucleated RBC 10^3/ul Nucleated RBC % INR (Anticoag Therapy) (0.89-1.11) Patient Temperature Not Reportable ABG pH 7.43 (7.35-7.45) ABG pCO2 40 (35-45) mmHg ABG pO2 76 L (80-100) mmHg ABG HCO3 26.4 (19-31) mmol/L ABG O2 Saturation 98.6 H (95-98) % ABG Base Excess 2.0 (-2.0-2.0) Respiration Rate Not Reportable O2 Delivery Device 3l nasal cannula Ventilator Type Not Reportable Vent Mode Not Reportable FiO2 Not Reportable Inspiratory Time Not Reportable PEEP Not Reportable Pressure Support Not Reportable Pressure Control Not Reportable EPAP Not Reportable IPAP Not Reportable BiPAP Not Reportable Sodium (133-145) mmol/L Potassium (3.5-5.0) mmol/L Chloride (101-111) mmol/L Carbon Dioxide (22-32) mmol/L Anion Gap (2-11) mmol/L BUN (6-24) mg/dL Creatinine (0.51-0.95) mg/dL Est GFR ( Amer) (>60) Est GFR (Non-Af Amer) (>60) BUN/Creatinine Ratio (8-20) Glucose (70-100) mg/dL Lactic Acid 2.3 H* (0.5-2.0) mmol/L Calcium (8.6-10.3) mg/dL Total Bilirubin (0.2-1.0) mg/dL AST (13-39) U/L ALT (7-52) U/L Alkaline Phosphatase (34-104) U/L Troponin I (<0.04) ng/mL B-Natriuretic Peptide 92 ( - 100) pg/mL Total Protein (6.4-8.9) g/dL Albumin (3.2-5.2) g/dL Globulin (2-4) g/dL Albumin/Globulin Ratio (1-3) Urine Color Urine Appearance Urine pH (5-9) Ur Specific [place] (1.010-1.030) Urine Protein (Negative) Urine Ketones (Negative) Urine Blood (Negative) Urine Nitrate (Negative) Urine Bilirubin (Negative) Urine Urobilinogen (Negative) Ur Leukocyte Esterase (Negative) Urine WBC (Auto) (Absent) Urine RBC (Auto) (Absent) Ur Squamous Epith Cells (Absent) Urine Bacteria (Absent) Urine Glucose (Negative) Urine Ascorbic Acid (Negative) 12/12/16 Range/Units 21:45 WBC (3.5-10.8) 10^3/ul RBC (4.0-5.4) 10^6/ul Hgb (12.0-16.0) g/dl Hct (35-47) % MCV (80-97) fL MCH (27-31) pg MCHC (31-36) g/dl RDW (10.5-15) % Plt Count (150-450) 10^3/ul MPV (7.4-10.4) um3 Neut % (Auto) (38-83) % Lymph % (Auto) (25-47) % [place] % (Auto) (1-9) % Eos % (Auto) (0-6) % Baso % (Auto) (0-2) % Absolute Neuts (auto) (1.5-7.7) 10^3/ul Absolute Lymphs (auto) (1.0-4.8) 10^3/ul Absolute Monos (auto) (0-0.8) 10^3/ul Absolute Eos (auto) (0-0.6) 10^3/ul Absolute Basos (auto) (0-0.2) 10^3/ul Absolute Nucleated RBC 10^3/ul Nucleated RBC % INR (Anticoag Therapy) (0.89-1.11) Patient Temperature ABG pH (7.35-7.45) ABG pCO2 (35-45) mmHg ABG pO2 (80-100) mmHg ABG HCO3 (19-31) mmol/L ABG O2 Saturation (95-98) % ABG Base Excess (-2.0-2.0) Respiration Rate O2 Delivery Device Ventilator Type Vent Mode FiO2 Inspiratory Time PEEP Pressure Support Pressure Control EPAP IPAP BiPAP Sodium (133-145) mmol/L Potassium (3.5-5.0) mmol/L Chloride (101-111) mmol/L Carbon Dioxide (22-32) mmol/L Anion Gap (2-11) mmol/L BUN (6-24) mg/dL Creatinine (0.51-0.95) mg/dL Est GFR ( Amer) (>60) Est GFR (Non-Af Amer) (>60) BUN/Creatinine Ratio (8-20) Glucose (70-100) mg/dL Lactic Acid (0.5-2.0) mmol/L Calcium (8.6-10.3) mg/dL Total Bilirubin (0.2-1.0) mg/dL AST (13-39) U/L ALT (7-52) U/L Alkaline Phosphatase (34-104) U/L Troponin I (<0.04) ng/mL B-Natriuretic Peptide ( - 100) pg/mL Total Protein (6.4-8.9) g/dL Albumin (3.2-5.2) g/dL Globulin (2-4) g/dL Albumin/Globulin Ratio (1-3) Urine Color [place] Urine Appearance Cloudy Urine pH 5.0 (5-9) Ur Specific [place] 1.025 (1.010-1.030) Urine Protein 2+(100 mg/dl) H (Negative) Urine Ketones Trace H (Negative) Urine Blood Negative (Negative) Urine Nitrate Negative (Negative) Urine Bilirubin Negative (Negative) Urine Urobilinogen Negative (Negative) Ur Leukocyte Esterase Negative (Negative) Urine WBC (Auto) 1+(6-10/hpf) H (Absent) Urine RBC (Auto) 2+(6-10/hpf) H (Absent) Ur Squamous Epith Cells Present H (Absent) Urine Bacteria 1+ H (Absent) Urine Glucose Negative (Negative) Urine Ascorbic Acid * H (Negative) ECG, personally reviewed: sinus tachycardia rate 106, no ischemia CXR, personally reviewed: IMPRESSION: MILD BIBASILAR SPACE DISEASE WITH MILD WORSENING ON THE RIGHT AND A SMALL RIGHT-SIDED PLEURAL EFFUSION. SUGGEST FOLLOW- UP Impression: 86F presenting with COPD exacerbation, suspect pneumonia DIAGNOSIS & PLAN Primary COPD exacerbation, suspect pneumonia : albuterol nebs : mometasone/formoterol : tiotropium : methylprednisolone : levofloxacin IV : incentive spirometry : guaifenesin : supplemental oxygen : consider pulmonology consult in AM : supportive care Secondary HX DVT w/ PE : continue apixaban once reconciled HTN : review meds once reconciled dementia : review meds once reconciled Admission Rational: inpatient for COPD exacerbation not anticipated to improve adequately to allow discharge w/i 48h DVTp: apixaban Code Status: full HCP: daughter, Breanna
[2016-12-13] MEDS: Omeprazole CAP* 20 MG PO SCH (05:35)
[2016-12-13 05:39] LABS: Hematocrit 36 % (35-47); Mean Corpuscular HGB Conc 33 g/dl (31-36); Mean Corpuscular Hemoglobin 32 pg (27-31); Mean Corpuscular Volume 95 fL (80-97); Mean Platelet Volume 9 um3 (7.4-10.4); Red Blood Count 3.77 10^6/ul (4.0-5.4); Red Cell Distribution Width 13 % (10.5-15); White Blood Count 7.7 10^3/ul (3.5-10.8)
[2016-12-13 05:48] LABS: Calcium 8.8 mg/dL (8.6-10.3); EGFR Non-African American 59.1 (>60); Potassium 3.9 mmol/L (3.5-5.0)
[2016-12-13 06:36] LABS: BUN/Creatinine Ratio 16.7 (8-20)
[2016-12-13] MEDS ORDERED: Albuterol 2.5 MG/3 ML NEB.SOL* (0.083%) INH SCH (07:00)
[2016-12-13] MEDS: Mometasone/Formoter 200/5 MDI INH SCH ×2 (07:53→19:40)
[2016-12-13] MEDS: Tiotropium CAP.INH* CAP.INH/18 MCG INH SCH (07:53)
[2016-12-13] MEDS ORDERED: Spiriva Inhaler DEVICE* 1 EACH DEVICE INH ONE (09:00)
[2016-12-13] MEDS: Docusate CAP* 100 MG PO SCH ×2 (09:25→19:32)
[2016-12-13] MEDS: CMC:Pravastatin (NF) 20 MG TAB PO SCH (11:00)
[2016-12-13] MEDS: Apixaban* 2.5 MG TAB PO SCH ×2 (11:01→19:32)
--- NOTE | 2016-12-13 12:23 | PN ---
Hospitalist Progress Note HOSPITALIST ADDENDUM Patient seen and examined at bedside. Mrs. Torres is an 86yo F with PMH of COPD, dementia, DVT/PE, who presented to ED with c/o dyspnea and cough, found to have COPD exacerbation secondary to pneumonia. She feels better this morning, denies dyspnea or "coughing fits". CVS: normal S1 and S2, RRR. Chest: BS+ bilaterally decreased, no added sounds. Will continue current management with antibiotics, steroids, bronchodilators and titrate supplemental O2 down.
[2016-12-13] MEDS: Donepezil TAB* 5 MG PO SCH (17:31)
[2016-12-13] MEDS: GuaiFENesin DM* 5 ML UDC PO PRN (17:34)
[2016-12-14] MEDS: Omeprazole CAP* 20 MG PO SCH (06:28)
[2016-12-14] MEDS: NS 0.9% 1000 ML* 1,000 ML IV SCH (06:51)
[2016-12-14] MEDS: Tiotropium CAP.INH* CAP.INH/18 MCG INH SCH (07:30)
[2016-12-14] MEDS: Mometasone/Formoter 200/5 MDI INH SCH ×2 (07:30→21:28)
[2016-12-14] MEDS: Docusate CAP* 100 MG PO SCH ×2 (08:34→20:56)
[2016-12-14] MEDS: CMC:Pravastatin (NF) 20 MG TAB PO SCH (08:34)
[2016-12-14] MEDS: Apixaban* 2.5 MG TAB PO SCH ×2 (08:35→20:55)
[2016-12-14] MEDS: Metoprolol Succinate XL TAB* 25 MG PO SCH (08:35)
--- NOTE | 2016-12-14 09:02 | PN ---
Subjective Date of Service: 12/14/16 Interval History: HOSPITALIST PROGRESS NOTE Patient seen and examined at bedside. She feels well tonight. Had a coughing fit last evening, improved after nebulizer treatment. Upset because she thinks she's been here for 1 month. Family History: Unchanged from Admission Social History: Unchanged from Admission Past Medical History: Unchanged from Admission Objective Active Medications: Acetaminophen (Tylenol Tab*) 650 mg PO Q6H PRN PRN Reason: FEVER/PAIN Albuterol (Ventolin 2.5 Mg/3 Ml Neb.Sylvia*) 2.5 mg INH Q2H PRN PRN Reason: SOB/WHEEZING Apixaban (Eliquis) 2.5 mg PO BID [facility] Last Admin: 12/14/16 08:35 Dose: 2.5 mg Docusate Sodium (Colace Cap*) 200 mg PO BID [facility] Last Admin: 12/14/16 08:34 Dose: 200 mg Donepezil HCl (Aricept Tab*) 10 mg PO QPM [facility] Last Admin: 12/13/16 17:31 Dose: 10 mg Guaifenesin/Dextromethorphan (Robitussin Dm*) 5 ml PO Q4H PRN PRN Reason: COUGH Last Admin: 12/13/16 17:34 Dose: 5 ml Levofloxacin/Dextrose (Levaquin 750 Mg Ivpremix(*)) 750 mg in 150 mls @ 100 mls /hr IVPB Q48H [facility] Melatonin (Melatonin (Nf)) 3 mg PO BEDTIME PRN; Protocol PRN Reason: Sleep Methylprednisolone Sodium Succinate (Solu-Medrol 40 Mg) 40 mg IV Q8H [facility] Metoprolol Succinate (Toprol Xl Tab*) 25 mg PO DAILY [facility] Last Admin: 12/14/16 08:35 Dose: 25 mg Mometasone Furoate/Formoterol Fumar (Dulera 200/5 Mdi*) 2 puff INH BID [facility] Last Admin: 12/14/16 07:30 Dose: 2 puff Omeprazole (Prilosec Cap*) 20 mg PO DAILY@0600 [facility] Last Admin: 12/14/16 06:28 Dose: 20 mg Ondansetron HCl (Zofran Inj*) 4 mg IV Q6H PRN PRN Reason: NAUSEA Pravastatin Sodium (Pravachol (Nf)) 80 mg PO DAILY [facility] Last Admin: 12/14/16 08:34 Dose: 80 mg Tiotropium [place] (Spiriva Cap.Inh*) 1 cap INH DAILY [facility] Last Admin: 12/14/16 07:30 Dose: 1 cap Vital Signs 12/14/16 12/14/16 12/14/16 00:00 07:39 08:00 Temperature 98.1 F Pulse Rate 83 Respiratory 18 18 Rate Blood Pressure 129/90 (mmHg) O2 Sat by Pulse 92 96 Oximetry Oxygen Devices in Use Now: Nasal Cannula - 1 liter Appearance: Pleasantly confused elderly lady sitting up in bed eating breakfast , in NAD. Eyes: No Scleral Icterus Ears/Nose/Mouth/Throat: Mucous Membranes Moist Neck: Trachea Midline Respiratory: Symmetrical Chest Expansion and Respiratory Effort, - - BS+ bilaterally with faint crackles to right base Cardiovascular: RRR - Normal S1 and S2 Abdominal: NL Sounds; No Tenderness; No Distention Extremities: No Edema Neurological: - - AAOx2 (self and place), AVILES Lines/Tubes/Other Access: Clean, Dry and Intact Peripheral IV Nutrition: Taking PO's Result Diagrams: 12/13/16 05:10 12/13/16 05:10 Assess/Plan/Problems-Billing Assessment: Mrs. Torres is an 86yo F with PMH of dementia, COPD, DVT/PE, HTN, who presented to ED with c/o cough and dyspnea, found to have COPD exacerbation secondary to pneumonia. - Patient Problems (1) Pneumonia Comment: - Improving. - Legionella and pneumococcal Ag are negative and blood cultures show no growth so far. - Continue Levofloxacin. (2) COPD exacerbation Comment: - Improving. - Continue bronchodilators and steroids. (3) Acute on chronic respiratory failure with hypoxemia Comment: - Continue to titrate supplemental O2 down. Goal to get her back to her usual nocturnal oxygen only. (4) HTN (hypertension) Comment: - Controlled. - Continue Metoprolol. (5) History of pulmonary embolus (PE) Comment: - Continue Apixaban. (6) Dementia Comment: - Continue donepezil. - Supportive care. (7) DVT prophylaxis Comment: - Apixaban. (8) Full code status Status and Disposition: Inpatient. Daughter updated at bedside.
[2016-12-14] MEDS: methylPREDNISolone SOD 40 MG* 1 ML VIAL IV SCH ×2 (10:26→18:13)
--- NOTE | 2016-12-14 11:42 | ED ---
Juni Vidal Alfonso, scribed for Felix Gaitan MD on 12/12/16 at 2049 . Shortness of Breath - HPI Summary HPI Summary: This patient is a 86 year old female [facility] c/o SOB at rest since last week. She reports being discharged from [facility] last week and visiting [facility] earlier today for these symptoms. Sx aggravated and alleviated by nothing. She reports a persistent cough, fever, and fatigue. - History of Current Complaint Chief Complaint: EDShortnessOfBreath Time Seen by Provider: 12/12/16 20:25 Hx Obtained From: Patient Onset/Duration: Sudden Onset, Lasting Weeks - 1 week, Still Present Current Severity: Moderate Dyspnea At: Rest Aggrevating Factors: Nothing Alleviating Factors: Nothing Associated Signs & Symptoms: Cough (Productive), Fever - Allergy/Home Medications Allergies/Adverse Reactions: Allergies Allergy/AdvReac Type Severity Reaction Status Date / Time Amoxicillin [From Augmentin] Allergy Diarrhea Verified 12/04/16 08:14 Clavulanic Acid Allergy Diarrhea Verified 12/04/16 08:14 [From Augmentin] PMH/Surg Hx/FS Hx/Imm Hx Cardiovascular History: Reports: Hx Deep Vein Thrombosis, Hx Hypercholesterolemia, Hx Valvular Heart Disease, Other Cardiovascular Problems/ Disorders - HEART VALVE "PROBLEM" Denies: Hx Hypertension Respiratory History: Reports: Hx Chronic Obstructive Pulmonary Disease (COPD), Hx Pulmonary Embolism, Other Respiratory Problems/Disorders - ON HOME O2 Sensory History: Reports: Hx Contacts or Glasses Denies: Hx Hearing Aid Opthamlomology History: Reports: Hx Contacts or Glasses Neurological History: Reports: Hx Dementia - Surgical History Surgery Procedure, Year, and Place: SPINAL SURGERY, TONSILECTOMY Infectious Disease History: No Infectious Disease History: Denies: Traveled Outside the [place] in Last 30 Days - Family History Known Family History: Positive: Diabetes Family History: FHx of AAA - Social History Alcohol Use: Occasionally Hx Substance Use: No Substance Use Type: Reports: None Hx Tobacco Use: Yes Smoking Status (MU): Former Smoker Review of Systems Positive: Fever Positive: Shortness Of Breath, Cough - Persistent Neurological: Other - Positive fatigue All Other Systems Reviewed And Are Negative: Yes Physical Exam Triage Information Reviewed: Yes Vital Signs On Initial Exam: Initial Vitals BP 143/84 12/12/16 19:21 Vital Signs Reviewed: Yes Appearance: Positive: Well-Appearing, No Pain Distress Skin: Positive: Warm, Skin Color Reflects Adequate Perfusion, Dry Head/Face: Positive: Normal Head/Face Inspection Eyes: Positive: Normal ENT: Positive: Normal ENT inspection Neck: Positive: Supple, Nontender Respiratory/Lung Sounds: Positive: Clear to Auscultation, Decreased Breath Sounds - Decreased lungs sounds on the right Cardiovascular: Positive: RRR Abdomen Description: Positive: Nontender, Soft Bowel Sounds: Positive: Present Musculoskeletal: Positive: Normal Neurological: Positive: Normal, Sensory/Motor Intact, Alert, Oriented to Person Place, Time, CN Intact II-III Psychiatric: Positive: Affect/Mood Appropriate Diagnostics - Vital Signs Vital Signs Temp Pulse Resp BP Pulse Ox 12/12/16 19:24 19 12/12/16 19:23 100.4 F 105 22 143/84 96 12/12/16 19:21 143/84 - Laboratory Lab Results: Lab Results 12/12/16 12/12/16 12/12/16 Range/Units 19:33 19:33 19:33 WBC 11.5 H (3.5-10.8) 10^3/ul RBC 4.37 (4.0-5.4) 10^6/ul Hgb 13.9 (12.0-16.0) g/dl Hct 42 (35-47) % MCV 97 (80-97) fL MCH 32 H (27-31) pg MCHC 33 (31-36) g/dl RDW 14 (10.5-15) % Plt Count 224 (150-450) 10^3/ul MPV 9 (7.4-10.4) um3 Neut % (Auto) 79.3 (38-83) % Lymph % (Auto) 12.7 L (25-47) % [place] % (Auto) 6.9 (1-9) % Eos % (Auto) 0.6 (0-6) % Baso % (Auto) 0.5 (0-2) % Absolute Neuts (auto) 9.1 H (1.5-7.7) 10^3/ul Absolute Lymphs (auto) 1.5 (1.0-4.8) 10^3/ul Absolute Monos (auto) 0.8 (0-0.8) 10^3/ul Absolute Eos (auto) 0.1 (0-0.6) 10^3/ul Absolute Basos (auto) 0.1 (0-0.2) 10^3/ul Absolute Nucleated RBC 0.01 10^3/ul Nucleated RBC % 0.1 INR (Anticoag Therapy) 1.33 H (0.89-1.11) Patient Temperature ABG pH (7.35-7.45) ABG pCO2 (35-45) mmHg ABG pO2 (80-100) mmHg ABG HCO3 (19-31) mmol/L ABG O2 Saturation (95-98) % ABG Base Excess (-2.0-2.0) Respiration Rate O2 Delivery Device Ventilator Type Vent Mode FiO2 Inspiratory Time PEEP Pressure Support Pressure Control EPAP IPAP BiPAP Sodium 137 (133-145) mmol/L Potassium 4.0 (3.5-5.0) mmol/L Chloride 99 L (101-111) mmol/L Carbon Dioxide 29 (22-32) mmol/L Anion Gap 9 (2-11) mmol/L BUN 12 (6-24) mg/dL Creatinine 0.91 (0.51-0.95) mg/dL Est GFR ( Amer) 75.0 (>60) Est GFR (Non-Af Amer) 58.3 (>60) BUN/Creatinine Ratio 13.2 (8-20) Glucose 120 H (70-100) mg/dL Lactic Acid (0.5-2.0) mmol/L Calcium 9.8 (8.6-10.3) mg/dL Total Bilirubin 1.30 H (0.2-1.0) mg/dL AST 17 (13-39) U/L ALT 13 (7-52) U/L Alkaline Phosphatase 66 (34-104) U/L Troponin I 0.01 (<0.04) ng/mL B-Natriuretic Peptide ( - 100) pg/mL Total Protein 7.4 (6.4-8.9) g/dL Albumin 3.9 (3.2-5.2) g/dL Globulin 3.5 (2-4) g/dL Albumin/Globulin Ratio 1.1 (1-3) Urine Color Urine Appearance Urine pH (5-9) Ur Specific [place] (1.010-1.030) Urine Protein (Negative) Urine Ketones (Negative) Urine Blood (Negative) Urine Nitrate (Negative) Urine Bilirubin (Negative) Urine Urobilinogen (Negative) Ur Leukocyte Esterase (Negative) Urine WBC (Auto) (Absent) Urine RBC (Auto) (Absent) Ur Squamous Epith Cells (Absent) Urine Bacteria (Absent) Urine Glucose (Negative) Urine Ascorbic Acid (Negative) 12/12/16 12/12/16 12/12/16 Range/Units 19:33 19:33 21:30 WBC (3.5-10.8) 10^3/ul RBC (4.0-5.4) 10^6/ul Hgb (12.0-16.0) g/dl Hct (35-47) % MCV (80-97) fL MCH (27-31) pg MCHC (31-36) g/dl RDW (10.5-15) % Plt Count (150-450) 10^3/ul MPV (7.4-10.4) um3 Neut % (Auto) (38-83) % Lymph % (Auto) (25-47) % [place] % (Auto) (1-9) % Eos % (Auto) (0-6) % Baso % (Auto) (0-2) % Absolute Neuts (auto) (1.5-7.7) 10^3/ul Absolute Lymphs (auto) (1.0-4.8) 10^3/ul Absolute Monos (auto) (0-0.8) 10^3/ul Absolute Eos (auto) (0-0.6) 10^3/ul Absolute Basos (auto) (0-0.2) 10^3/ul Absolute Nucleated RBC 10^3/ul Nucleated RBC % INR (Anticoag Therapy) (0.89-1.11) Patient Temperature Not Reportable ABG pH 7.43 (7.35-7.45) ABG pCO2 40 (35-45) mmHg ABG pO2 76 L (80-100) mmHg ABG HCO3 26.4 (19-31) mmol/L ABG O2 Saturation 98.6 H (95-98) % ABG Base Excess 2.0 (-2.0-2.0) Respiration Rate Not Reportable O2 Delivery Device 3l nasal cannula Ventilator Type Not Reportable Vent Mode Not Reportable FiO2 Not Reportable Inspiratory Time Not Reportable PEEP Not Reportable Pressure Support Not Reportable Pressure Control Not Reportable EPAP Not Reportable IPAP Not Reportable BiPAP Not Reportable Sodium (133-145) mmol/L Potassium (3.5-5.0) mmol/L Chloride (101-111) mmol/L Carbon Dioxide (22-32) mmol/L Anion Gap (2-11) mmol/L BUN (6-24) mg/dL Creatinine (0.51-0.95) mg/dL Est GFR ( Amer) (>60) Est GFR (Non-Af Amer) (>60) BUN/Creatinine Ratio (8-20) Glucose (70-100) mg/dL Lactic Acid 2.3 H* (0.5-2.0) mmol/L Calcium (8.6-10.3) mg/dL Total Bilirubin (0.2-1.0) mg/dL AST (13-39) U/L ALT (7-52) U/L Alkaline Phosphatase (34-104) U/L Troponin I (<0.04) ng/mL B-Natriuretic Peptide 92 ( - 100) pg/mL Total Protein (6.4-8.9) g/dL Albumin (3.2-5.2) g/dL Globulin (2-4) g/dL Albumin/Globulin Ratio (1-3) Urine Color Urine Appearance Urine pH (5-9) Ur Specific [place] (1.010-1.030) Urine Protein (Negative) Urine Ketones (Negative) Urine Blood (Negative) Urine Nitrate (Negative) Urine Bilirubin (Negative) Urine Urobilinogen (Negative) Ur Leukocyte Esterase (Negative) Urine WBC (Auto) (Absent) Urine RBC (Auto) (Absent) Ur Squamous Epith Cells (Absent) Urine Bacteria (Absent) Urine Glucose (Negative) Urine Ascorbic Acid (Negative) 12/12/16 Range/Units 21:45 WBC (3.5-10.8) 10^3/ul RBC (4.0-5.4) 10^6/ul Hgb (12.0-16.0) g/dl Hct (35-47) % MCV (80-97) fL MCH (27-31) pg MCHC (31-36) g/dl RDW (10.5-15) % Plt Count (150-450) 10^3/ul MPV (7.4-10.4) um3 Neut % (Auto) (38-83) % Lymph % (Auto) (25-47) % [place] % (Auto) (1-9) % Eos % (Auto) (0-6) % Baso % (Auto) (0-2) % Absolute Neuts (auto) (1.5-7.7) 10^3/ul Absolute Lymphs (auto) (1.0-4.8) 10^3/ul Absolute Monos (auto) (0-0.8) 10^3/ul Absolute Eos (auto) (0-0.6) 10^3/ul Absolute Basos (auto) (0-0.2) 10^3/ul Absolute Nucleated RBC 10^3/ul Nucleated RBC % INR (Anticoag Therapy) (0.89-1.11) Patient Temperature ABG pH (7.35-7.45) ABG pCO2 (35-45) mmHg ABG pO2 (80-100) mmHg ABG HCO3 (19-31) mmol/L ABG O2 Saturation (95-98) % ABG Base Excess (-2.0-2.0) Respiration Rate O2 Delivery Device Ventilator Type Vent Mode FiO2 Inspiratory Time PEEP Pressure Support Pressure Control EPAP IPAP BiPAP Sodium (133-145) mmol/L Potassium (3.5-5.0) mmol/L Chloride (101-111) mmol/L Carbon Dioxide (22-32) mmol/L Anion Gap (2-11) mmol/L BUN (6-24) mg/dL Creatinine (0.51-0.95) mg/dL Est GFR ( Amer) (>60) Est GFR (Non-Af Amer) (>60) BUN/Creatinine Ratio (8-20) Glucose (70-100) mg/dL Lactic Acid (0.5-2.0) mmol/L Calcium (8.6-10.3) mg/dL Total Bilirubin (0.2-1.0) mg/dL AST (13-39) U/L ALT (7-52) U/L Alkaline Phosphatase (34-104) U/L Troponin I (<0.04) ng/mL B-Natriuretic Peptide ( - 100) pg/mL Total Protein (6.4-8.9) g/dL Albumin (3.2-5.2) g/dL Globulin (2-4) g/dL Albumin/Globulin Ratio (1-3) Urine Color [place]shan Urine Appearance Cloudy Urine pH 5.0 (5-9) Ur Specific [place] 1.025 (1.010-1.030) Urine Protein 2+(100 mg/dl) H (Negative) Urine Ketones Trace H (Negative) Urine Blood Negative (Negative) Urine Nitrate Negative (Negative) Urine Bilirubin Negative (Negative) Urine Urobilinogen Negative (Negative) Ur Leukocyte Esterase Negative (Negative) Urine WBC (Auto) 1+(6-10/hpf) H (Absent) Urine RBC (Auto) 2+(6-10/hpf) H (Absent) Ur Squamous Epith Cells Present H (Absent) Urine Bacteria 1+ H (Absent) Urine Glucose Negative (Negative) Urine Ascorbic Acid * H (Negative) Result Diagrams: 12/13/16 05:10 12/13/16 05:10 Lab Statement: Any lab studies that have been ordered have been reviewed, and results considered in the medical decision making process. - Radiology CXR Xray Interpretation: Positive (See Comments) - MILD BIBASILAR SPACE DISEASE WITH MILD WORSENING ON THE RIGHT AND A SMALL RIGHT-SIDED PLEURAL EFFUSION. SUGGEST FOLLOW-UP. Radiology Interpretation Completed By: Radiologist - EKG 1934 Cardiac Rate: Tachycardia - BPM 106 EKG Rhythm: Sinus Tachycardia Course/Dx - Course Course Of Treatment: Ms. Torres reurned to the ED for continued coughing and fever and, according to her daughter, she was poorly responsive. She was just D/ C's and will need to come back in the hospital for furtheer treatment. - Diagnoses Provider Diagnoses: COPD (chronic obstructive pulmonary disease), Bronchitis - Physician Notifications Discussed Care of Patient With: Bruno Instructed by Provider To: Other - Discussed patient with Dr. Ochoa (neurologist ) at 2102. Discharge - Discharge Plan Condition: Stable Disposition: ADMITTED TO [facility] The documentation as recorded by the Juni link Alfonso accurately reflects the service I personally performed and the decisions made by me, Felix Gaitan MD.
[2016-12-14] MEDS: Donepezil TAB* 5 MG PO SCH (18:13)
[2016-12-14] MEDS ORDERED: Levofloxacin TAB* 750 MG PO SCH (20:00)
[2016-12-14] MEDS: GuaiFENesin DM* 5 ML UDC PO PRN (20:55)
[2016-12-14] MEDS ORDERED: Levofloxacin 750 MG IVPREMIX(* 750 MG/150 ML BAG IVPB SCH (22:00)
[2016-12-15] MEDS: methylPREDNISolone SOD 40 MG* 1 ML VIAL IV SCH ×2 (00:59→09:16)
[2016-12-15] MEDS: Omeprazole CAP* 20 MG PO SCH (05:38)
[2016-12-15] MEDS: Mometasone/Formoter 200/5 MDI INH SCH (07:51)
[2016-12-15] MEDS: Tiotropium CAP.INH* CAP.INH/18 MCG INH SCH (07:51)
[2016-12-15 08:17] VITALS: BP 140/62
[2016-12-15] MEDS: Metoprolol Succinate XL TAB* 25 MG PO SCH (09:16)
[2016-12-15] MEDS: Apixaban* 2.5 MG TAB PO SCH (09:16)
[2016-12-15] MEDS: Docusate CAP* 100 MG PO SCH (09:16)
[2016-12-15] MEDS: CMC:Pravastatin (NF) 20 MG TAB PO SCH (09:16)
--- NOTE | 2016-12-16 05:59 | DS ---
CC: Dr. Manolo Rodriguez. DISCHARGE SUMMARY: DATE OF ADMISSION: 12/13/16 DATE OF DISCHARGE: 12/15/16 DISCHARGE DIAGNOSES: 1. Acute chronic obstructive pulmonary disease exacerbation. 2. Right lower lobe pneumonia. 3. [id number] hypoxemic respiratory failure. SECONDARY DIAGNOSES: 1. Dementia. 2. Chronic obstructive pulmonary disease. 3. Deep vein thrombosis/pulmonary embolus. 4. Hypertension. MEDICATION LIST: 1. Pravastatin 80 mg p.o. daily. 2. Eliquis 2.5 mg p.o. b.i.d. 3. Metoprolol succinate 25 mg p.o. daily. 4. Donepezil 10 mg p.o. q.p.m. 5. Spiriva 1 capsule inhaled daily. New Medications: 1. Prednisone 40 mg p.o. daily for 3 days, then 30 mg for 3 days, 20 mg for 3 days, 10 mg for 3 day s, 5 mg for 3 days, and stop. 2. Omeprazole 20 mg p.o. daily. 3. Levofloxacin 750 mg p.o. q.48 hours 3 more doses. 4. Guaifenesin 5 mL p.o. q.4 hours p.r.n. cough. 5. Albuterol 2.5 nebulized q.4 hours p.r.n. shortness of breath or wheezing. 6. Supplemental oxygen 1 L during the day, 3 L at night. HOSPITAL COURSE: Ms. Torres is an 86-year-old lady with a past medical history as stated above th at presented to the emergency room with complaints of shortness of breath and cough. She had been a dmitted to [facility] on 12/04/16 for a COPD exacerbation, but even after discharge, she continued to have symptoms and was requiring supplemental oxygen 24 hours a day and had severe coughing fits at home. For more details about her presentation, I refer you to her history and physical. The patient's chest x-ray showed a right small infiltrate with a small right-sided pleural effusion. Blood cultures were negative as well as Legionella and pneumococcal antigen. The patient was started on steroids, levofloxacin, bronchodilators and she had progressive improveme nt of her symptoms, but she is still requiring continuous oxygen. She requires 1 L during the day a nd 3 L while sleeping. The patient was felt to be medically stable for discharge and she will follow up with Dr. Rodriguez on 0 12/20/16. PHYSICAL EXAMINATION: Vital Signs: Temperature 97.5, heart rate is 67, respiratory rate is 16, oxy gen saturation is 97% on 1 L nasal cannula. CVS: Normal S1, S2. Regular rate and rhythm. Chest: Breath sounds present bilaterally with rales in the the right base, but no wheezes or rhonchi. Abdo men: Soft. Bowel sounds present. Extremities: No edema. Neuro: She is alert and oriented x3. A ble to move all 4 extremities. DIET: Heart-healthy diet. ACTIVITIES: As tolerated. DISPOSITION: To home. STATUS WHILE IN THE HOSPITAL: Inpatient. Please keep in mind, this is a summarized version of this patient's hospital stay. If you need more information, please feel free to call me at [phone] or please obtain the full medical records. TIME SPENT: Approximately 45 minutes was spent to complete the discharge. [id number]/[facility] #: [id number]
== END 2016-12-15 14:15 | disposition home or self-care (01) | DRG 193 ==
LOC: ED 19:16 → MED 12-13 02:06
PROVIDERS: ADMIT Hospitalist; ATTEND Internal Medicine
DX: J18.9 Pneumonia, unspecified organism (principal); J96.21 Acute and chronic respiratory failure with hypoxia; F03.90 Unspecified dementia, unspecified severity, without behavioral disturbance, psychotic disturbance, mood disturbance, and anxiety; J44.1 Chronic obstructive pulmonary disease with (acute) exacerbation; I10 Essential (primary) hypertension; Z99.81 Dependence on supplemental oxygen; Z86.718 Personal history of other venous thrombosis and embolism; Z86.711 Personal history of pulmonary embolism; Z79.01 Long term (current) use of anticoagulants; Z79.899 Other long term (current) drug therapy; Z88.6 Allergy status to analgesic agent; Z88.8 Allergy status to other drugs, medicaments and biological substances; Z87.891 Personal history of nicotine dependence; Z80.6 Family history of leukemia; Z83.3 Family history of diabetes mellitus; Z82.49 Family history of ischemic heart disease and other diseases of the circulatory system
CPT/HCPCS: 36415; 36600; 71020; 80048; 80053; 81003; 81015; 82803; 83605; 83880; 84484; 85025; 85610; 87040; 87086; 87899; 93005; 94640; 94760; A9270-GY; J2920; J2930

== ENCOUNTER 2017-10-28 09:51 | Inpatient (IN) | payer MEDICARE ==
[2017-10-28] MEDS ORDERED: NS 0.9% 1000 ML* 1,000 ML IV ONE (10:27)
[2017-10-28 10:50] LABS: ABS Basophils 0.1 10^3/ul (0-0.2); ABS Eosinophils 0.1 10^3/ul (0-0.6); ABS Lymphocytes 1.1 10^3/ul (1.0-4.8); ABS Monocytes 0.3 10^3/ul (0-0.8); ABS Neutrophils 3.2 10^3/ul (1.5-7.7); ABS Nucleated RBC 0 10^3/ul; Eosinophil % 2.2 % (0-6); Hematocrit 40 % (35-47); Hemoglobin 13.2 g/dl (12.0-16.0); Lymphocyte % 23.6 % (25-47); Mean Corpuscular HGB Conc 33 g/dl (31-36); Mean Corpuscular Hemoglobin 33 pg (27-31); Mean Corpuscular Volume 98 fL (80-97); Mean Platelet Volume 8.9 um3 (7.4-10.4); Nucleated Red Blood Cells % 0; Platelet Count 193 10^3/ul (150-450); Red Blood Count 4.02 10^6/ul (4.0-5.4); Red Cell Distribution Width 13 % (10.5-15); White Blood Count 4.8 10^3/ul (3.5-10.8)
[2017-10-28 10:59] LABS: INR 1.29 (0.77-1.02)
--- NOTE | 2017-10-28 11:30 | RAD ---
Indication: Syncope. Single frontal view of the chest performed at 1115 hours was reviewed. Comparison is made with previous exam dated December 12, 2016. There is scoliosis of the thoracic spine. Heart is mildly enlarged. Bibasilar atelectasis is similar to that seen on previous exam. No definite pneumonia or pneumothorax is noted. No pleural fluid is noted. IMPRESSION: NO ACTIVE CARDIOPULMONARY DISEASE IS NOTED. SCOLIOSIS OF THE THORACIC SPINE.
[2017-10-28] MEDS ORDERED: NS 0.9% 1000 ML* 1,000 ML IV SCH (12:45)
[2017-10-28] MEDS: Donepezil TAB* 5 MG PO SCH (17:20)
--- NOTE | 2017-10-28 17:51 | ECHO ---
Patient: OLIMPIA LITTLE [facility] Rec#: [id number] : 1930 Date: 10/28/2017 Age: 87y Height: 162.56 cm / 64.0 in Weight: 72.57 kg / 159.9 lbs Sex: F BSA: 1.79 Room#: 438 Admit Date#: 10/28/2017 Type: Inpatient Referring: Aide So NP Reading: Cordell Ortega MD Siding Installer: Lita Capone RDCS,RDMS CC: Austin Coleman Transthoracic Echocardiogram Indication: Syncope BP: 134/75 HR: 73 Rhythm: NSR Findings History: COPD, DVT, PE, HTN Technical Comments: The study quality is fair. Left Ventricle: The left ventricular chamber size is normal. Mild concentric left ventricular hypertrophy is observed. Global left ventricular wall motion and contractility are within normal limits. There is normal left ventricular systolic function. The estimated ejection fraction is 55-60%. There is an E to A reversal in the mitral valve flow pattern suggestive of diastolic dysfunction. Left Atrium: The left atrium is mildly dilated. Right Ventricle: The right ventricular chamber size and systolic function are within normal limits. Right Atrium: The right atrium is not well visualized. The right atrium is mild to moderately dilated. Aortic Valve: The aortic valve is trileaflet. There is no evidence of aortic valve thickening. Systolic excursion of the aortic valve is normal. There is trace to mild aortic regurgitation. There is no evidence of aortic stenosis. Mitral Valve: There is mitral annular calcification. The mitral valve leaflets are mildly thickened. There is a trace of mitral regurgitation. There is no evidence of mitral stenosis. Tricuspid Valve: The tricuspid valve leaflets are normal. There is moderate to severe tricuspid regurgitation. The right ventricular systolic pressure is estimated at 52 mmHg. There is evidence of moderate pulmonary hypertension. Pulmonic Valve: The pulmonic valve structure is not well visualized. There is no evidence of pulmonic regurgitation. Pericardium: There is no significant pericardial effusion. Aorta: The ascending aorta is not well visualized. There is no dilatation of the aortic arch. The aortic root is normal in size. Pulmonary Artery: The main pulmonary artery is not well visualized. Venous: The inferior vena cava is dilated. There is less than 50% respiratory change in the inferior vena cava dimension. Summary: There are no significant changes when compared to the previous study done on 09/10/16 Conclusions Global left ventricular wall motion and contractility are within normal limits. There is normal left ventricular systolic function. There is trace to mild aortic regurgitation. There is a trace of mitral regurgitation. There is moderate to severe tricuspid regurgitation. The right ventricular systolic pressure is estimated at 52 mmHg. There is no significant pericardial effusion. Measurements Name Value Normal Range RVIDd (AP) 2D 1.4 cm (0.9 - 2.6) RAd ISD 4CH 5.5 cm (3.4 - 4.9) IVSd (2D) 1.07 cm (0.6 - 1) LVPWd (2D) 1.09 cm (0.6 - 1) LVIDd (2D) 3.57 cm (3.6 - 5.4) LVIDs (2D) 2.48 cm - LV FS (2D) 30.58 % (25 - 45) EF Teichholz (2D) 59.07 % - Aortic Annulus 2 cm (1.4 - 2.6) Ao root diameter (2D) 1.97 cm (2.1 - 3.5) Aortic arch 2.27 cm (1.8 - 3.4) LA dimension (AP) 2D 2.8 cm (2.3 - 3.8) LAd ISD 4CH 6.7 cm (2.9 - 5.3) LA ISD 4CH W 4 cm (2.5 - 4.5) Name Value Normal Range MV E-wave Vmax 0.48 m/sec - MV deceleration time 170.36 msec - MV A-wave Vmax 1.12 m/sec - MV E:A ratio 0.43 ratio - LV septal e' Vmax 0.07 m/sec - LV lateral e' Vmax 0.06 m/sec - LV E:e' septal ratio 7 ratio - LV E:e' lateral ratio 8 ratio - Name Value Normal Range AV Vmax 1.32 m/sec - AV VTI 26.81 cm - AV peak gradient 6.97 mmHg - AV mean gradient 3.73 mmHg - LVOT Vmax 0.88 m/sec - LVOT VTI 17.61 cm - LVOT peak gradient 3.12 mmHg - LVOT mean gradient 1.47 mmHg - AR PHT 480.55 msec - AR peak gradient 42.9 mmHg - NATALIE Vmax 0.5 m/sec - Name Value Normal Range MV Vmax 1.13 m/sec - MV VTI 19.36 cm - MV peak gradient 5.1 mmHg - MV mean gradient 1.95 mmHg - MV PHT 32.69 msec - MVA (PHT) 6.73 cm2 - Name Value Normal Range TR Vmax 3.01 m/sec - TR peak gradient 36.41 mmHg - RAP 8 mmHg - RVSP 52 mmHg - IVC diameter 2.29 cm - Name Value Normal Range PV Vmax 0.63 m/sec - PV peak gradient 1.57 mmHg -
[2017-10-28] MEDS: Apixaban* 2.5 MG TAB PO SCH (20:19)
[2017-10-28] MEDS: Atorvastatin* 20 MG TAB PO SCH (20:19)
--- NOTE | 2017-10-28 20:39 | HP ---
CC: Dr. Austin Coleman * HISTORY AND PHYSICAL: DATE OF ADMISSION: 10/28/17 PRIMARY CARE PROVIDER: Dr. Austin Coleman. ATTENDING PHYSICIAN: Jodie Schneider MD * (dictated by Aide Spear NP). CHIEF COMPLAINT: Syncopal episode. HISTORY OF PRESENT ILLNESS: Ms. Torres is an 87-year-old female with past medical history significant for PE, DVT, dementia, COPD, hypertension, chronic hypoxic respiratory failure and a "leaky valve" who had been in her usual state of health, took approximately a 10-minute shower this morning when she got out and her daughter's partner was helping her dry off. She stated that she was not feeling well. She was assisted to the toilet and then the family reports that her eyes "rolled into the back of her head and she lost consciousness for a few minutes". The patient states that she had no fevers, chills, chest pain, shortness of breath, nausea, vomiting, diarrhea. They report a cough for several days. The patient is unsure if she was lightheaded prior to the episode. Per her family, she had no complaints of lightheadedness, only stating that she did not feel well. The patient has felt fatigued recently and has been going to bed early per the family. The patient states that that is because she does not like what they are watching on TV. The patient at home uses 1 L of oxygen at rest, 2 L with ambulation and 3 L at bedtime. Due to her loss of consciousness, the family called EMS. When EMS arrived, the patient was alert and talking. While in the emergency room, the patient received a liter of normal saline. She was on oxygen at 2 L, oxygenating well. She had EKG showing a sinus arrhythmia, bradycardic rate of 48. She had a chest x-ray showing no acute findings. Her labs were unremarkable. Due to the patient's syncopal episode, the hospitalists were asked to evaluate the patient for admission. PAST MEDICAL HISTORY: 1. History of pulmonary embolus and DVT. 2. Dementia. 3. COPD. 4. Hypertension. 5. Chronic hypoxic respiratory failure. 6. "Leaky valve." PAST SURGICAL HISTORY: 1. Status post spinal rods for scoliosis. 2. Status post right rotator cuff repair. HOME MEDICATIONS: Include: 1. Aricept 10 mg oral daily. 2. Eliquis 2.5 mg oral twice daily. 3. Pravachol 80 mg oral daily at bedtime. 4. Toprol 25 mg oral daily. 5. Spiriva 1 inhalation daily. ALLERGIES: AUGMENTIN causes diarrhea. FAMILY HISTORY: The patient's sister had a history of atrial fibrillation. Mother with a history of diabetes mellitus and a brother with a history of leukemia. SOCIAL HISTORY: The patient is a former smoker quitting over 50 years ago. She denies alcohol or recreational drug use. She lives with her daughter and her partner. Her daughter, Breanna Lopez, will be her surrogate decision maker in the event she is unable to make decisions for herself. REVIEW OF SYSTEMS: I performed an 11-point review of systems. All the pertinent positives and negatives are mentioned in the history of present illness. The remaining review of systems was negative. PHYSICAL EXAMINATION GENERAL APPEARANCE: The patient is alert, pleasant and appears to be in no acute distress. VITAL SIGNS: Temperature 96.9, heart rate 57, respiratory rate 21, O2 sat 93% on 3 L via nasal cannula, blood pressure 134/75. HEENT: Normocephalic, atraumatic. Pupils are equal and reactive to light. Extraocular movements are intact. RESPIRATORY: There is no accessory muscle use. Lungs are clear to auscultation bilaterally. CARDIOVASCULAR: Regular rate and rhythm. S1 and S2 present. There are no murmurs, rubs or gallops heard. ABDOMEN: Soft, nontender, and nondistended. Bowel sounds present x4. EXTREMITIES: No lower extremity edema. DP and PT pulses are 2+ and symmetric. MUSCULOSKELETAL: There is no clubbing or cyanosis noted. The patient exhibits good strength in all extremities. NEUROLOGICAL: The patient is alert and oriented to person, place, and season. She states it is the year 1999. Cranial nerves II through XII are grossly intact. PSYCHOLOGICAL: The patient is calm and cooperative. SKIN: There are no rashes or abnormalities seen. DIAGNOSTIC STUDIES/LABORATORY DATA: Sodium 140, potassium 4.4, chloride 103, CO2 of 32, BUN 17, creatinine 1.16, glucose 111. White blood cell count 4.8, hemoglobin 13.2, hematocrit 40, and platelets 193,000. TSH 2.17. Troponin 0.00. EKG shows a sinus arrhythmia and bradycardia, rate of 48. There are no acute signs of ischemia. This is similar to previous EKG from 12/12/16 with the exception at that time it was in sinus tach. Chest x-ray from today. Radiologist's impression: No active cardiopulmonary disease. Scoliosis of the thoracic spine. IMPRESSION: Ms. Torres is an 87-year-old female with past medical history significant for history of pulmonary embolism and deep venous thrombosis, dementia, chronic obstructive pulmonary disease, hypertension, chronic hypoxic respiratory failure and a "leaky valve" who presented to the emergency room after a syncopal episode. ASSESSMENT/PLAN: 1. Syncope. I suspect this could be secondary to the patient's bradycardia. She is on Toprol. I am going to hold her Toprol. Her episode may also be secondary to mild dehydration. I am going to give her some gentle IV hydration. We will check orthostatic vital signs. The patient had an echocardiogram in August 2016 showing an EF of 60% to 65%, mild aortic regurgitation, no aortic stenosis, mild mitral regurg, and moderate tricuspid regurgitation. We will check an echo to make sure that her valve disease has not worsened. We will trend her troponins. 2. Chronic hypoxic respiratory failure. Continue home supplemental oxygen. 3. Dementia. Continued on her home Aricept. 4. History of pulmonary embolism and deep venous thrombosis. Continue home Eliquis. 5. Chronic obstructive pulmonary disease. Continued on her home Spiriva. 6. Fluids, electrolytes and nutrition. The patient will be on a heart-healthy diet. 7. Code status. Full code. 8. DVT prophylaxis. The patient is at highest risk and will be on Eliquis. 9. Disposition. Observation. TIME SPENT: Time for this admission was approximately 60 minutes, greater than half of that was spent with the patient and her family discussing medications, past medical history, the events leading up to her arrival today, performing a physical examination. The case has been reviewed with the attending, Dr. Schneider, who agrees with the plan of care. Reviewed by TYRONE HANNA 10/30/17 0923 [id number]/[facility] #: [id number] HARPAL
--- NOTE | 2017-10-28 22:39 | ED ---
Ho Vidal Nilda, scribed for Vincenzo Santana MD on 10/28/17 at 1035 . Syncope/Near Syncope - HPI Summary HPI Summary: LVL 5 Caveat: Hx and PE limited due to PMHx Dementia. This patient is an 87 year old BIBA accompanied by family with a chief complaint of witnessed syncopal episode this morning that has now resolved. Family states pt finished 10 min shower (without O2 mask), was sat down on toilet after stating she didnt feel well, and had a syncopal episode, in which eyes rolled back and pt became unresponsive. Pt is on 1L-2L O2 at home. Family states pt seemed to have SOB during episode, and mentions she is often noncompliant with O2 mask. The patient rates the pain 0/10 in severity. Symptoms aggravated by nothing and alleviated by O2. Family reports mild cough, constipation (for 3 days), and decreased fluid intake. Family denies focal deficits. Patient denies current SOB, pain, trauma, sore throat, and dry mouth. Medications include Metoprolol, inhaler, and Eloquis for PMHx PE and DVT, per family. Family states pt took Metoprolol and Eloquis this morning. Family noted in ED, pts oxygen deficit was not alleviated by 1L O2 but resolved with 2L O2. PMHx includes COPD. No PMHx CHF. - History Of Current Complaint Chief Complaint: EDSyncope Hx Obtained From: Patient, Family/Travel Money Advisor Onset/Duration: Sudden Onset, Resolved Context: Witnessed, Loss Of Consciousness Activity At Onset: At Rest Associated Head Trauma: No Aggravating Factor(s): Nothing Alleviating Factor(s): Other - O2 Associated Signs And Symptoms: Other - Syncope (resolved), SOB (resolved), cough , constipation, decreased drinking; Negative focal deficit, trauma, sore throat , dry mouth. - Allergies/Home Medications Allergies/Adverse Reactions: Allergies Allergy/AdvReac Type Severity Reaction Status Date / Time amoxicillin [From Augmentin] Allergy Diarrhea Verified 10/28/17 10:04 clavulanic acid Allergy Diarrhea Verified 10/28/17 10:04 [From Augmentin] Home Medications: Home Medications Pravastatin (NF) [Pravachol (NF)] 80 mg PO BEDTIME 10/28/17 [History Confirmed 05/07/18] PMH/Surg Hx/FS Hx/Imm Hx Cardiovascular History: Reports: Hx Deep Vein Thrombosis, Hx Hypercholesterolemia, Hx Valvular Heart Disease, Other Cardiovascular Problems/ Disorders - HEART VALVE "PROBLEM" Denies: Hx Congestive Heart Failure, Hx Hypertension Respiratory History: Reports: Hx Chronic Obstructive Pulmonary Disease (COPD), Hx Pulmonary Embolism, Other Respiratory Problems/Disorders - ON HOME O2 Sensory History: Reports: Hx Contacts or Glasses Denies: Hx Hearing Aid Opthamlomology History: Reports: Hx Contacts or Glasses Neurological History: Reports: Hx Dementia - Surgical History Surgery Procedure, Year, and Place: SPINAL SURGERY, TONSILECTOMY Infectious Disease History: No Infectious Disease History: Denies: Traveled Outside the [place] in Last 30 Days - Family History Known Family History: Positive: Diabetes Family History: FHx of AAA - Social History Lives: With Family Alcohol Use: Occasionally Hx Substance Use: No Substance Use Type: Reports: None Hx Tobacco Use: Yes Smoking Status (MU): Former Smoker Review of Systems - ROS Summary Review of Systems Summary: LVL 5 Caveat: Hx and PE limited due to PMHx Dementia. Positive: Other - negative dry mouth. Negative: Sore Throat Positive: Shortness Of Breath - resolved, Cough Positive: Other - constipation, decrease fluids intake Positive: Other - negative trauma Neurological: Other - negative focal deficits Positive: Syncope - resolved All Other Systems Reviewed And Are Negative: No Physical Exam - Summary Physical Exam Summary: General: well-appearing, no pain distress Skin: warm, color reflects adequate perfusion, dry Head: normal Eyes: EOMI, KANDIS ENT: normal Neck: supple, nontender Respiratory: CTA, breath sounds present Cardiovascular: Bradycardia Abdomen: soft, nontender Bowel: present Musculoskeletal: normal, strength/ROM intact Neurological: sensory/motor intact, mild dementia, [place] scale nml, no focal neurological deficit. Psychological: affect/mood appropriate Triage Information Reviewed: Yes Vital Signs On Initial Exam: Initial Vitals Temp Pulse Resp BP Pulse Ox 96.9 F 53 23 134/75 98 10/28/17 09:58 10/28/17 09:58 10/28/17 09:58 10/28/17 09:58 10/28/17 09:58 Vital Signs Reviewed: Yes Completion Of Physical Exam Limited Due To: Dementia Diagnostics - Vital Signs Vital Signs Temp Pulse Resp BP Pulse Ox 10/28/17 09:58 96.9 F 53 23 134/75 98 - Laboratory Lab Results: Lab Results 10/28/17 10/28/17 10/28/17 Range/Units 10:39 10:39 10:40 WBC 4.8 (3.5-10.8) 10^3/ul RBC 4.02 (4.0-5.4) 10^6/ul Hgb 13.2 (12.0-16.0) g/dl Hct 40 (35-47) % MCV 98 H (80-97) fL MCH 33 H (27-31) pg MCHC 33 (31-36) g/dl RDW 13 (10.5-15) % Plt Count 193 (150-450) 10^3/ul MPV 8.9 (7.4-10.4) um3 Neut % (Auto) 65.7 (38-83) % Lymph % (Auto) 23.6 L (25-47) % Callaway % (Auto) 7.2 H (0-7) % Eos % (Auto) 2.2 (0-6) % Baso % (Auto) 1.3 (0-2) % Absolute Neuts (auto) 3.2 (1.5-7.7) 10^3/ul Absolute Lymphs (auto) 1.1 (1.0-4.8) 10^3/ul Absolute Monos (auto) 0.3 (0-0.8) 10^3/ul Absolute Eos (auto) 0.1 (0-0.6) 10^3/ul Absolute Basos (auto) 0.1 (0-0.2) 10^3/ul Absolute Nucleated RBC 0 10^3/ul Nucleated RBC % 0 INR (Anticoag Therapy) 1.29 H (0.77-1.02) APTT 28.1 (26.0-36.3) seconds Sodium (139-145) mmol/L Potassium (3.5-5.0) mmol/L Chloride (101-111) mmol/L Carbon Dioxide (22-32) mmol/L Anion Gap (2-11) mmol/L BUN (6-24) mg/dL Creatinine (0.51-0.95) mg/dL Est GFR ( Amer) (>60) Est GFR (Non-Af Amer) (>60) BUN/Creatinine Ratio (8-20) Glucose (70-100) mg/dL Lactic Acid (0.5-2.0) mmol/L Calcium (8.6-10.3) mg/dL Magnesium (1.9-2.7) mg/dL Total Bilirubin (0.2-1.0) mg/dL AST (13-39) U/L ALT (7-52) U/L Alkaline Phosphatase (34-104) U/L Total Creatine Kinase (10-223) U/L CK-MB (CK-2) (0.6-6.3) ng/mL Troponin I (<0.04) ng/mL C-Reactive Protein (< 5.00) mg/L B-Natriuretic Peptide 132 H ( - 100) pg/mL Total Protein (6.4-8.9) g/dL Albumin (3.2-5.2) g/dL Globulin (2-4) g/dL Albumin/Globulin Ratio (1-3) Lipase (11.0-82.0) U/L TSH (0.34-5.60) mcIU/mL 10/28/17 10/28/17 Range/Units 10:40 10:40 WBC (3.5-10.8) 10^3/ul RBC (4.0-5.4) 10^6/ul Hgb (12.0-16.0) g/dl Hct (35-47) % MCV (80-97) fL MCH (27-31) pg MCHC (31-36) g/dl RDW (10.5-15) % Plt Count (150-450) 10^3/ul MPV (7.4-10.4) um3 Neut % (Auto) (38-83) % Lymph % (Auto) (25-47) % [place]away % (Auto) (0-7) % Eos % (Auto) (0-6) % Baso % (Auto) (0-2) % Absolute Neuts (auto) (1.5-7.7) 10^3/ul Absolute Lymphs (auto) (1.0-4.8) 10^3/ul Absolute Monos (auto) (0-0.8) 10^3/ul Absolute Eos (auto) (0-0.6) 10^3/ul Absolute Basos (auto) (0-0.2) 10^3/ul Absolute Nucleated RBC 10^3/ul Nucleated RBC % INR (Anticoag Therapy) (0.77-1.02) APTT (26.0-36.3) seconds Sodium 140 (139-145) mmol/L Potassium 4.4 (3.5-5.0) mmol/L Chloride 103 (101-111) mmol/L Carbon Dioxide 32 (22-32) mmol/L Anion Gap 5 (2-11) mmol/L BUN 17 (6-24) mg/dL Creatinine 1.16 H (0.51-0.95) mg/dL Est GFR ( Amer) 56.6 (>60) Est GFR (Non-Af Amer) 44.0 (>60) BUN/Creatinine Ratio 14.7 (8-20) Glucose 111 H (70-100) mg/dL Lactic Acid 1.9 (0.5-2.0) mmol/L Calcium 9.2 (8.6-10.3) mg/dL Magnesium 2.1 (1.9-2.7) mg/dL Total Bilirubin 0.60 (0.2-1.0) mg/dL AST 17 (13-39) U/L ALT 11 (7-52) U/L Alkaline Phosphatase 45 (34-104) U/L Total Creatine Kinase 36 (10-223) U/L CK-MB (CK-2) 1.1 (0.6-6.3) ng/mL Troponin I 0.00 (<0.04) ng/mL C-Reactive Protein 1.12 (< 5.00) mg/L B-Natriuretic Peptide ( - 100) pg/mL Total Protein 6.0 L (6.4-8.9) g/dL Albumin 3.5 (3.2-5.2) g/dL Globulin 2.5 (2-4) g/dL Albumin/Globulin Ratio 1.4 (1-3) Lipase 35 (11.0-82.0) U/L TSH 2.17 (0.34-5.60) mcIU/mL Result Diagrams: 10/28/17 10:40 10/28/17 10:40 Lab Statement: Any lab studies that have been ordered have been reviewed, and results considered in the medical decision making process. - Radiology CXR Radiology Interpretation Completed By: Radiologist - No active cardiopulmonary disease is noted. Scoliosis of the throacic spine. Dr. Santana has reviewed this report. - EKG 1033 Cardiac Rate: Other Rate - slow sinus arrhythmia, [address] Segment: Normal EKG Interpretation: prolonged OR interval of 241, no ectopy Re-Evaluation - Re-Evaluation First Eval Re-Evaluation Time: 11:48 Comment: Reviewed labs, imaging and admission plan with pt and family. Course/Dx Course Of Treatment: ADMIT HOSPITALIST. CRITICAL CARE TIME LESS THAN 30 MINUTES. Assessment/Plan: Medications reviewed. - Diagnoses Provider Diagnoses: Syncope - Physician Notifications Discussed Care of Patient With: Jodie Schneider - Hospitalist Time Discussed With Above Provider: 11:43 Instructed by Provider To: Admit As Inpatient Discharge - Sign-Out/Discharge Documenting (check all that apply): Discharge/Admit/Transfer - Discharge Plan Condition: Stable Disposition: ADMITTED TO [facility] - Billing Disposition and Condition Condition: STABLE [place] [facility] [place] The documentation as recorded by the Ho link Nilda accurately reflects the service I personally performed and the decisions made by me, Vincenzo Santana MD.
[2017-10-29] MEDS: Apixaban* 2.5 MG TAB PO SCH ×2 (08:00→21:20)
[2017-10-29] MEDS: Spiriva Inhaler DEVICE* 1 EACH DEVICE INH ONE (09:11)
[2017-10-29] MEDS: Tiotropium CAP.INH* CAP.INH/18 MCG (USE ORDER SET !) INH SCH (09:11)
[2017-10-29 12:29] LABS: Urine Appearance Clear; Urine Blood Negative (Negative); Urine Color Straw; Urine Ketones Negative (Negative); Urine Protein Negative (Negative); Urine Specific Gravity 1.008 (1.010-1.030); Urine Urobilinogen Negative (Negative)
[2017-10-29] MEDS: amLODIPine TAB* 5 MG PO SCH (12:40)
--- NOTE | 2017-10-29 15:19 | PN ---
Subjective Date of Service: 10/29/17 Interval History: HOSPITALIST PROGRESS NOTE Patient seen and examined at bedside. Pleasantly confused lady, talking to her stuffed dog. Offers no complaints. Family History: Unchanged from Admission Social History: Unchanged from Admission Past Medical History: Unchanged from Admission Objective Active Medications: Amlodipine Besylate (Norvasc Tab*) 5 mg PO DAILY [facility] Last Admin: 10/29/17 12:40 Dose: 5 mg Apixaban (Eliquis) 2.5 mg PO BID [facility] Last Admin: 10/29/17 08:00 Dose: 2.5 mg Atorvastatin Calcium (Lipitor*) 20 mg PO BEDTIME [facility] PRN Reason: Protocol Last Admin: 10/28/17 20:19 Dose: 20 mg Donepezil HCl (Aricept Tab*) 10 mg PO QPM [facility] Last Admin: 10/28/17 17:20 Dose: 10 mg Tiotropium Tr[place]ble (Spiriva Cap.Inh*) 1 cap INH DAILY [facility] Last Admin: 10/29/17 09:11 Dose: 1 cap Vital Signs - 8 hr 10/29/17 10/29/17 10/29/17 08:13 09:12 11:48 Temperature 97.5 F 98.0 F Pulse Rate 66 81 71 Respiratory 20 18 20 Rate Blood Pressure 146/49 123/95 (mmHg) O2 Sat by Pulse 98 91 99 Oximetry Oxygen Devices in Use Now: Nasal Cannula Appearance: Pleasant elderly lady sitting up in bed in NAD. Eyes: No Scleral Icterus Ears/Nose/Mouth/Throat: Mucous Membranes Moist Neck: Trachea Midline Respiratory: Symmetrical Chest Expansion and Respiratory Effort, Clear to Auscultation Cardiovascular: RRR - Normal S1 and S2, +SM Neurological: - - AAOx1 (self) Result Diagrams: 10/28/17 10:40 10/28/17 10:40 Assess/Plan/Problems-Billing Assessment: Mrs. Torres is an 87yo F with PMH of dementia, PE/DVT, COPD on home O2, HTN, moderate to severe tricuspid regurgitation, who presented to ED after a syncopal episode. - Patient Problems (1) Syncope Comment: - Liekly multifactorial in the setting of mild dehydration, hot shower , non-compliance with supplemental O2, and bradycardia secondary to metoprolol. - Metoprolol was discontinued and HR is trending back up. - No significant arrhythmias on Tele so far. - Echo showed EF 55-60%, moderate to severe TR. (2) HTN (hypertension) Comment: - Trending up now Metoprolol was discontinued - start Amlodipine and monitor. (3) COPD (chronic obstructive pulmonary disease) Comment: - Stable. - Continue supplemental O2 and Spiriva. (4) History of pulmonary embolus (PE) Comment: - Continue Apixaban. (5) DVT prophylaxis Comment: - Apixaban. (6) Full code status
[2017-10-29] MEDS: Donepezil TAB* 5 MG PO SCH (17:54)
[2017-10-29] MEDS: Atorvastatin* 20 MG TAB PO SCH (21:20)
[2017-10-30] MEDS: Tiotropium CAP.INH* CAP.INH/18 MCG (USE ORDER SET !) INH SCH (08:17)
[2017-10-30 09:14] VITALS: BP 143/61
[2017-10-30] MEDS: Apixaban* 2.5 MG TAB PO SCH (09:14)
[2017-10-30] MEDS: amLODIPine TAB* 5 MG PO SCH (09:14)
--- NOTE | 2017-10-31 12:43 | DS ---
CC: Dr. Coleman DISCHARGE SUMMARY: DATE OF ADMISSION: 10/28/17. DATE OF DISCHARGE: 10/30/17. PRIMARY CARE PROVIDER: Dr. Coleman. DISCHARGE DIAGNOSES: Syncope, likely multifactorial in the setting of mild dehydration, hot shower, noncompliants with supplemental O2, and bradycardia secondary to metoprolol. SECONDARY DIAGNOSES: 1. Dementia. 2. Pulmonary embolism/deep venous thrombosis. 3. Chronic obstructive pulmonary disease, on home O2. 4. Hypertension. 5. [id number] tricuspid regurgitation. MEDICATION LIST: 1. Aricept 10 mg p.o. at bedtime. 2. Eliquis 2.5 mg p.o. b.i.d. 3. Pravastatin 80 mg p.o. at bedtime. 4. Spiriva 1 capsule inhaled daily. New Medication: Amlodipine 5 mg p.o. daily. Metoprolol was discontinued. HOSPITAL COURSE: Mrs. Torres is an 87-year-old lady with past medical history as stated above that presented to the emergency room after a syncopal episode. As per daughter's report, the patient was taking a hot shower and she stated that she was not feeling well. They were able to see her down in the toilet and her head little backwards and the patient lost consciousness. She was pale and they were not able to say these were pleuritic or not, as she had just finished the shower. EMS was olea d and by the time the ambulance arrived she was back to her baseline. She was admitted to telemetry floor for further evaluation. Her workup in the emergency room include d a chest x-ray that showed no active cardiopulmonary disease, only scoliosis of the thoracic spine. Her EKG showed sinus bradycardia with a heart rate of 48 with left anterior fascicular block. LABORATORY TESTS: Laboratory tests were suggestive of mild dehydration with a creatinine of 1.1 and the urinalysis was negative for urinary tract infection. The patient received gentle IV hydration. Her metoprolol was discontinued with improvement of her he art rate. Her blood pressure trended up and amlodipine was started for blood pressure control. The patient remained asymptomatic and had no episodes of significant arrhythmia while on telemetry. Whil e sleeping, she still has heart rates in the 50s, but with activity, they rise to the 70s or 80s. The patient was thought to be stable at this time and she will need followup with her primary care pr corinne as outpatient. I believe she already has some signs of impaired conduction as seen on her EKG with the left anterior fascicular block that is new when compared to her prior EKG from 2017. At this point, I believe jus t discontinued beta-blockers and avoiding other negative chronotropic agents, should be enough, but i f she has another syncopal episode, she may need the cardiology consultation for pacemaker evaluation . PHYSICAL EXAMINATION: Vital Signs: Temperature 98.3, heart rate is 72, respiratory rate is 16, oxyg en saturation is 99% on 2 liters nasal cannula, blood pressure is 143/61. General: The patient is a pleasantly confused elderly lady, sitting up in bed, in no acute distress. CVS: Normal S1, S2. Re gular rate and rhythm. Chest: Breath sounds present bilaterally with no added sounds. Extremities: No edema. Neuro: She is alert, awake, and oriented to self, able to move all 4 extremities. DIET: Heart healthy diet. ACTIVITY: As tolerated. DISPOSITION: To Home. STATUS WHILE IN THE HOSPITAL: Inpatient. Please keep in mind this is a summarized version of this pa flash's hospital stay. If you need more information, please feel free to call me at [phone] or brittany rawls obtain the full medical records. TIME SPENT: Approximately 45 minutes was spent to complete this discharge. [id number]/[facility] #: [id number]
== END 2017-10-30 11:26 | disposition home or self-care (01) | DRG 641 ==
LOC: ED 09:51 → MEDTELE 12:15 → OBSVTOIN 10-29 12:17
PROVIDERS: ADMIT Internal Medicine; ATTEND Internal Medicine
DX: E86.0 Dehydration (principal); J96.11 Chronic respiratory failure with hypoxia; I38 Endocarditis, valve unspecified; R00.1 Bradycardia, unspecified; Z91.19 Patient's noncompliance with other medical treatment and regimen; R55 Syncope and collapse; F03.90 Unspecified dementia, unspecified severity, without behavioral disturbance, psychotic disturbance, mood disturbance, and anxiety; J44.9 Chronic obstructive pulmonary disease, unspecified; Z99.81 Dependence on supplemental oxygen; I10 Essential (primary) hypertension; I07.1 Rheumatic tricuspid insufficiency; M41.84 Other forms of scoliosis, thoracic region; I44.4 Left anterior fascicular block; Z86.718 Personal history of other venous thrombosis and embolism; Z86.711 Personal history of pulmonary embolism; Z79.01 Long term (current) use of anticoagulants; Z79.899 Other long term (current) drug therapy; Z88.1 Allergy status to other antibiotic agents; Z83.3 Family history of diabetes mellitus; Z80.6 Family history of leukemia; Z82.49 Family history of ischemic heart disease and other diseases of the circulatory system; Z87.891 Personal history of nicotine dependence
CPT/HCPCS: 36415; 71045; 80053; 81003; 81015; 82550; 82553; 83605; 83690; 83735; 83880; 84443; 84484; 85025; 85610; 85730; 86140; 87086; 93005; 93306; 94640; 99284; A9270-GY; G0378; G8978-GP-CI; G8979-GP-CI; G8980-GP-CI

== ENCOUNTER 2018-01-24 12:45 | Emergency (ER) | payer MEDICARE ==
--- OUTSIDE RECORDS SUMMARY | 2018-01-24 13:40 | XMS REPORT ---
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 [place] [address] Problems Description No Information Family History Date Family Member(s) Problem(s) Comments General Aortic Aneurysm General Diabetes General Heart Disease General Leukemia General Hypertension Social History Type Date Description Comments Occupation Retired Cigarette Use Never Smoked Cigarettes ETOH Use Occasionally consumes alcohol Recreational Drug Use Denies Drug Use Allergies, Adverse Reactions, Alerts Date Description Reaction Status Severity Comments 02/21/2017 Augmentin Diarrhea active Moderate severe diarrhea Medications Medication Date Status Form Strength Qnty SIG Indications Ordering Provider Bactrim DS 01/15/ Active Tablets 800-160mg 10tab take 1 R35.8 Austin 2018 s tablet by Jared asencio MD 12 hours for 5 days Proair HFA 00// Active Aerosol 108(90Base Unknown 0000 ) mcg/Act Amlodipine 00/00/ Active Tablets 5mg 30tab 1 by mouth Austin Besylate 0000 s every day MD Jared Pravastatin / Active Tablets 80mg 30tab Take One Austin Sodium 0000 s Tablet By Jared Mouth AT , Bedtime Aricept / Active Tablets 10mg 30tab Take One Austin 0000 s Tablet By Matthewetbernard Mouth Every , MD Morning Spiriva / Active Capsules 18mcg 30cap Inhale The Austin Handihaler 0000 s Contents Of Jared One Capsule , MD Via Handihaler By Mouth Every Day Eliquis / Active Tablets 2.5mg 60tab Take One Kendrick 0000 s Tablet By Caro Mouth Twice III, A Day TRAPPER ANIMAL-C Triamcinolone 07/27/ Hx Cream 0.1% 60gm apply a R21 Ashlee Acetonide 2018 - small Rafy 01/15/ amount to Ivett, 2018 affected R.D. area twice a day as needed Cephalexin 07/27/ Hx Capsules 500mg 21cap 1 by mouth L03.114 Ashlee 2018 - s three times Rafy 01/15/ a day Ivett, 2018 R.D. Toprol XL / Hx Tablets ER 25mg 30tab 1 by mouth Austin 0000 - 24HR s every day Jared 11/06/ MD 2017 Immunizations CPT Code Status Date Vaccine Lot # [id number] Given 03/01/2017 Influenza Vaccine High Dose PF [id number] Vital Signs Date Vital Result Comment 01/15/2018 Weight 130.00 lb Weight in kg's 58.968 BP Systolic 96 mmHg BP Diastolic 64 mmHg Heart Rate 102 /min Body Temperature 97.1 F Respiratory Rate 20 /min O2 % BldC Oximetry 100 % on O2 by NC 11/06/2017 Weight 136.00 lb Weight in kg's 61.690 BP Systolic 118 mmHg BP Diastolic 68 mmHg Heart Rate 68 /min Body Temperature 97.2 F Respiratory Rate 15 /min 07/27/2017 Weight 137.00 lb Weight in kg's 62.143 BP Systolic 120 mmHg BP Diastolic 70 mmHg Heart Rate 70 /min Body Temperature 97.2 F Respiratory Rate 15 /min 06/26/2017 Weight 138.00 lb Weight in kg's 62.597 BP Systolic 107 mmHg BP Diastolic 75 mmHg Heart Rate 84 /min Body Temperature 98.3 F 03/01/2017 Weight 138.00 lb Weight in kg's 62.597 BP Systolic 132 mmHg BP Diastolic 74 mmHg Heart Rate 80 /min Body Temperature 96.7 F Respiratory Rate 20 /min 02/28/2017 O2 % BldC Oximetry 93 % 83% Ra exercise 02/21/2017 Weight 137.00 lb Weight in kg's 62.143 BP Systolic 118 mmHg BP Diastolic 70 mmHg Heart Rate 56 /min Body Temperature 96.6 F Respiratory Rate 20 /min Height 61.5 inches 5'1.50" BMI (Body Mass Index) 25.5 kg/m2 O2 % BldC Oximetry 94 % 1 Liters O2 Results Test Date Test Result H/L Range Note Laboratory test finding 10/28/2017 Lactic Acid 1.9 mmol/L 0.5-2.0 1 B-Type Natriuretic Peptide BNP 132 pg/mL High 2 CBC Auto Diff 10/28/2017 White Blood Count 4.8 10^3/uL 3.5-10.8 Red Blood Count 4.02 10^6/uL 4.0-5.4 Hemoglobin 13.2 g/dL 12.0-16.0 Hematocrit 40 % 35-47 Mean Corpuscular Volume 98 fL High 80-97 Mean Corpuscular Hemoglobin 33 pg High 27-31 Mean Corpuscular HGB Conc 33 g/dL 31-36 Red Cell Distribution Width 13 % 10.5-15 Platelet Count 193 10^3/uL 150-450 Mean Platelet Volume 8.9 um3 7.4-10.4 Abs Neutrophils 3.2 10^3/uL 1.5-7.7 Abs Lymphocytes 1.1 10^3/uL 1.0-4.8 Abs Monocytes 0.3 10^3/uL 0-0.8 Abs Eosinophils 0.1 10^3/uL 0-0.6 Abs Basophils 0.1 10^3/uL 0-0.2 Abs Nucleated RBC 0 10^3/uL Granulocyte % 65.7 % 38-83 Lymphocyte % 23.6 % Low 25-47 Monocyte % 7.2 % High 0-7 Eosinophil % 2.2 % 0-6 Basophil % 1.3 % 0-2 Nucleated Red Blood Cells % 0 Inr/Protime 10/28/2017 Inr 1.29 High 0.77-1.02 Laboratory test finding 10/28/2017 Partial Thrombo Time 28.1 seconds 26.0 -36.3 PTT Comp Metabolic Panel 10/28/2017 Sodium 140 mmol/L 139-145 Potassium 4.4 mmol/L 3.5-5.0 Chloride 103 mmol/L 101-111 Co2 Carbon Dioxide 32 mmol/L 22-32 Anion Gap 5 mmol/L 2-11 Glucose 111 mg/dL High 70-100 Blood Urea Nitrogen 17 mg/dL 6-24 Creatinine 1.16 mg/dL High 0.51-0.95 BUN/Creatinine Ratio 14.7 8-20 Calcium 9.2 mg/dL 8.6-10.3 Total Protein 6.0 g/dL Low 6.4-8.9 Albumin 3.5 g/dL 3.2-5.2 Globulin 2.5 g/dL 2-4 Albumin/Globulin Ratio 1.4 1-3 Total Bilirubin 0.60 mg/dL 0.2-1.0 Alkaline Phosphatase 45 U/L 34-104 Alt 11 U/L 7-52 Ast 17 U/L 13-39 Egfr Non- 44.0 >60 Egfr 56.6 >60 3 Laboratory test finding 10/28/2017 Magnesium 2.1 mg/dL 1.9-2.7 Lipase 35 U/L 11.0-82.0 Creatine Kinase 36 U/L 10-223 C Reactive Protein 1.12 mg/L < 5.00 4 Troponin-I (TnI) 0.00 ng/mL <0.04 CKMB 10/28/2017 CKMB ng/mL 1.1 ng/mL 0.6-6.3 Laboratory test finding 10/28/2017 TSH (Thyroid Stimulating 2.17 mcIU/mL 0.34-5.60 Horm) 1 Specimen hemolyzed. Result may not be valid. [place] Severe Sepsis and Septic Shock Management Bundle Measure requires all lactic acids initially measuring >2.0 mmol/L be repeated. 2 >100 to <200 pg/mL: likely compensated congestive heart failure (CHF) 200 to 400 pg/mL: likely moderate CHF >400 pg/mL: likely moderate to severe CHF 3 Because ethnic data is not always readily available, this report includes an eGFR for both -Americans and non- Americans. The National Kidney Disease Education Program (NKDEP) does not endorse the use of the MDRD equation for patients that are not between the ages of 18 and 70, are , have extremes of body size, muscle mass, or nutritional status, or are non- or non-. According to the National Kidney Foundation, irrespective of diagnosis, the stage of the disease is based on the level of kidney function: Stage Description GFR(mL/min/1.73 m(2)) 1 Kidney damage with normal or decreased GFR 90 2 Kidney damage with mild decrease in GFR 60-89 3 Moderate decrease in GFR 30-59 4 Severe decrease in GFR 15-29 5 Kidney failure <15 (or dialysis) 4 Acute inflammation: >10.00 Procedures Date CPT Code Description Status 02/28/2017 43456 Oximetry - Single Study Completed Encounters Type Date Location Provider CPT E/M Dx Office Visit 11/06/2017 11:00a [place] [address] R55 I10 Office Visit 07/27/2017 11:15a Main Office Ashlee Hlilman M.D., R.D. 98360 L03.114 R21 Office Visit 06/26/2017 4:30p [place] [address] J44.9 H61.21 Office Visit 03/01/2017 4:15p [place] [address] H61.23 Z23 Office Visit 02/21/2017 4:15p [place] [address] J44.9 Plan of Care Future Appointment(s):03/04/2018 1:00 pm - Austin Coleman MD at Main [facility]/15/2018 - Austin Coleman MDR35.8 Other polyuriaNew Medication: Bactrim DS 800-160 mgComments:Frequency and discomfort. Seems likely to be a UTI. Will collect a sample at home and bring it in before she starts bactrim treatment.E86.0 DehydrationComments:Mild to moderate dehydration. Increase fluid intake. If not urinating will need IVF, discussed dehydration symptoms.
--- NOTE | 2018-01-24 13:42 | ED ---
GI/ HPI - HPI Summary HPI Summary: This is [place] documenting for attending Felix Gaitan MD. Patient is a 87 y/o F w/ c/o intermittent episodes (described as "on and off") of diarrhea onsetting last week. Caretakers are present in the room and partially provide HPI as patient has dementia. According to caretakers, patient was recently treated for UTI with bactrim. She received a 5 day dose and finished the course 2 days ago. Patient denies the presence of pain and nothing is noted to aggravate/alleviate Sx on triage. Caretakers report patient is not eating nor drinking. Vomiting is denied. PMD was called today who advised treatment at ED. Home allergies and medications were reviewed. - History of Current Complaint Chief Complaint: EDNauseaVomitDiarrh Time Seen by Provider: 01/24/18 13:03 Stated Complaint: GENERAL ILLNESS/POS DEHYDRATION Hx Obtained From: Patient, Family/Car Cooper - patient has dementia, so caretakers provided most of HPI. Onset/Duration: Started Weeks Ago - one week Timing: Intermittent - described as "on and off" Current Severity: None - pain is denied Pain Intensity: 0 Location of Pain: Other - PAIN IS DENIED Pain Characteristics: Other: - PAIN IS DENIED Associated Signs and Symptoms: Positive: Diarrhea, Change in Appetite, Other: - Patient is drinking less fluid. Negative: Vomiting Aggravating Factor(s): Nothing Alleviating Factor(s): Nothing - Additional Pertinent History Primary Care Physician: [id number] - Allergy/Home Medications Allergies/Adverse Reactions: Allergies Allergy/AdvReac Type Severity Reaction Status Date / Time amoxicillin [From Augmentin] Allergy Diarrhea Verified 01/24/18 12:57 clavulanic acid Allergy Diarrhea Verified 01/24/18 12:57 [From Augmentin] metoprolol AdvReac See Comment Verified 01/24/18 12:57 PMH/Surg Hx/FS Hx/Imm Hx Cardiovascular History: Reports: Hx Deep Vein Thrombosis, Hx Hypercholesterolemia, Hx Valvular Heart Disease, Other Cardiovascular Problems/ Disorders - HEART VALVE "PROBLEM" Denies: Hx Congestive Heart Failure, Hx Hypertension Respiratory History: Reports: Hx Chronic Obstructive Pulmonary Disease (COPD), Hx Pulmonary Embolism, Other Respiratory Problems/Disorders - ON HOME O2 Sensory History: Reports: Hx Contacts or Glasses Denies: Hx Hearing Aid Opthamlomology History: Reports: Hx Contacts or Glasses Neurological History: Reports: Hx Dementia - Surgical History Surgery Procedure, Year, and Place: SPINAL SURGERY, TONSILECTOMY Infectious Disease History: No Infectious Disease History: Denies: Traveled Outside the [place] in Last 30 Days - Family History Known Family History: Positive: Diabetes Family History: FHx of AAA - Social History Alcohol Use: Occasionally Hx Substance Use: No Substance Use Type: Reports: None Hx Tobacco Use: Yes Smoking Status (MU): Former Smoker Review of Systems Negative: Fever - temperature on vitals is noted to be 98.7 F Positive: Diarrhea, Other - loss of appetite, drinking less fluid . Negative: Vomiting All Other Systems Reviewed And Are Negative: Yes Physical Exam - Summary Physical Exam Summary: Appearance: The patient is well-nourished in no acute distress and in no acute pain. Skin: The skin is warm and dry and skin color reflects adequate perfusion. Skin is noted to be tense HEENT: The head is normocephalic and atraumatic. The pupils are equal and reactive. The conjunctivae are clear and without drainage. Nares are patent and without drainage. Mouth reveals dry mucous membranes. The throat is without erythema and exudate. The external ears are intact. The ear canals are patent and without drainage. The tympanic membranes are intact. Neck: The neck is supple with full range of motion and non-tender. There are no carotid bruits. There is no neck vein distension. Respiratory: Chest is non-tender. Lungs are clear to auscultation and breath sounds are symmetrical and equal. Cardiovascular: Heart is regular rate and rhythm. There is no murmur or rub auscultated. There is no peripheral edema and pulses are symmetrical and equal. Abdomen: The abdomen is soft and non-tender. There are normal bowel sounds heard in all four quadrants and there is no organomegaly palpated. Musculoskeletal: There is no back tenderness noted. Extremities are non-tender with full range of motion. There is good capillary refill. There is no peripheral edema or calf tenderness elicited. Neurological: Patient is alert and oriented to person, place and time. The patient has symmetrical motor strength in all four extremities. Cranial nerves are grossly intact. Deep tendon reflexes are symmetrical and equal in all four extremities. Psychiatric: The patient has an appropriate affect and does not exhibit any anxiety or depression. Triage Information Reviewed: Yes Vital Signs On Initial Exam: Initial Vitals Temp Pulse Resp BP Pulse Ox 98.7 F 73 18 106/60 94 01/24/18 12:50 01/24/18 12:50 01/24/18 12:50 01/24/18 12:50 01/24/18 12:50 Vital Signs Reviewed: Yes Diagnostics - Vital Signs Vital Signs Temp Pulse Resp BP Pulse Ox 01/24/18 12:50 98.7 F 73 18 106/60 94 - Laboratory Result Diagrams: 01/24/18 13:47 01/24/18 13:47 Lab Statement: Any lab studies that have been ordered have been reviewed, and results considered in the medical decision making process. - EKG 1356 Cardiac Rate: NL - Rate of 63 BPM EKG Rhythm: Sinus Rhythm EKG Interpretation: Left axis devation, normal ST, no STEMI Re-Evaluation - Re-Evaluation First Eval Re-Evaluation Time: 16:55 Change: Improved Comment: Patient is doing better after fluids. Dicussed results of tests and labs as well as follow up plan for patient to be discharged and see PCP within 3 days. 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 GIGU Course/Dx - Course Course Of Treatment: Ms. John Torres was brought into the emergency department by her family with a concern that they think she is getting dehydrated. She is been being treated for a urinary tract infection and has not been eating or drinking very much. She seems tired to them. She was rehydrated here and her urine was noted to still have signs of infection. They thought that she was being treated with Bactrim and therefore I will change her antibiotic and encouraged follow-up. - Diagnoses Provider Diagnoses: UTI (urinary tract infection), Dehydration Discharge - Sign-Out/Discharge Documenting (check all that apply): Patient Departure - discharge - Discharge Plan Condition: Stable Disposition: HOME Prescriptions: Ciprofloxacin TAB* [Cipro Tab*] 500 mg PO BID #10 tab Patient Education Materials: Dehydration (ED), Urinary Tract Infection in Women (ED) Referrals: Austin Coleman MD [Primary Care Provider] - 3 Days Additional Instructions: Follow up with PCP within three days. Return to ED for any new or worsening symptoms. - Billing Disposition and Condition Condition: STABLE Disposition: Home
[2018-01-24 13:55] LABS: ABS Basophils 0.1 10^3/ul (0-0.2); ABS Eosinophils 0.1 10^3/ul (0-0.6); ABS Lymphocytes 1.3 10^3/ul (1.0-4.8); ABS Monocytes 0.4 10^3/ul (0-0.8); ABS Neutrophils 2.7 10^3/ul (1.5-7.7); ABS Nucleated RBC 0 10^3/ul; Eosinophil % 2.6 % (0-6); Hematocrit 41 % (35-47); Hemoglobin 13.8 g/dl (12.0-16.0); Lymphocyte % 28.3 % (25-47); Mean Corpuscular HGB Conc 34 g/dl (31-36); Mean Corpuscular Hemoglobin 32 pg (27-31); Mean Corpuscular Volume 96 fL (80-97); Mean Platelet Volume 8.7 um3 (7.4-10.4); Nucleated Red Blood Cells % 0.1; Platelet Count 221 10^3/ul (150-450); Red Blood Count 4.28 10^6/ul (4.00-5.40); Red Cell Distribution Width 13 % (10.5-15); White Blood Count 4.6 10^3/ul (3.5-10.8)
[2018-01-24 14:14] LABS: EGFR Non-African American 33.2 (>60)
[2018-01-24] MEDS ORDERED: NS 0.9% 1000 ML* 1,000 ML IV ONE (15:28)
[2018-01-24 15:48] LABS: Urine Appearance Cloudy; Urine Blood Negative (Negative); Urine Color Yellow; Urine Ketones Negative (Negative); Urine Protein Negative (Negative); Urine Red Blood Cell 2+(6-10/hpf) (Absent); Urine Specific Gravity 1.014 (1.010-1.030); Urine Urobilinogen Negative (Negative); Urine White Blood Cell 2+(11-20/hpf) (Absent)
[2018-01-24 19:25] VITALS: BP 110/86
== END 2018-01-24 19:26 | disposition home or self-care (01) ==
LOC: ED 12:45
DX: N39.0 Urinary tract infection, site not specified (principal); E86.0 Dehydration; F03.90 Unspecified dementia, unspecified severity, without behavioral disturbance, psychotic disturbance, mood disturbance, and anxiety; Z99.81 Dependence on supplemental oxygen; J44.9 Chronic obstructive pulmonary disease, unspecified; Z86.711 Personal history of pulmonary embolism; Z87.891 Personal history of nicotine dependence; Z88.8 Allergy status to other drugs, medicaments and biological substances; Z88.3 Allergy status to other anti-infective agents
CPT/HCPCS: 36415; 80053; 81003; 81015; 83605; 83735; 84443; 84484; 85025; 86140; 87086; 93005; 96360; 99283